=== PATIENT | female | born 1990 | race Caucasian/White ===

== ENCOUNTER → 2018-01-22 11:36 | Outpatient (CLI) | payer MEDICAID, SELFPAY ==
--- NOTE | 2018-01-22 11:54 | DI.REPORT_ITS ---
SYMPTOM/DIAGNOSIS: LOW BACK PAIN, M54.5, H/O FALL LUMBOSACRAL SPINE: Five views were obtained. Hip joints and SI joints are unremarkable in appearance. Intervertebral disc spaces are well maintained. No evidence of spondylolysis or spondylolisthesis. No bony abnormality is seen. CONCLUSION: Negative examination of the lumbar spine.
== END ==
PROVIDERS: PCP Nurse Practitioner Family; Visit Provider Nurse Practitioner Family
DX: M54.5 Low back pain (principal); Z91.81 History of falling
CPT/HCPCS: 72110

== ENCOUNTER → 2018-01-26 01:25 | Outpatient (CLI) | payer MEDICAID, SELFPAY ==
--- NOTE | 2018-01-26 08:08 | DI.REPORT_ITS ---
SYMPTOM/DIAGNOSIS: ? HYDRONEPHROSIS, LT URETERAL STONE, S/P URETEROSCOPY AND STONE REMOVAL, N20.1 RENAL ULTRASOUND: Routine examination. Comparison CT scan is 10/29/17. Comparison ultrasound is . The right kidney measures 11.6 cm. long. No renal mass, calculus or obstruction is seen. There is normal blood flow to the right kidney. The left kidney measures 10.8 cm. long. No renal mass, calculus or obstruction is identified. There is normal blood flow to the left kidney. The prevoid urinary bladder volume was 14 cc's. No intraluminal masses are present. IMPRESSION: Negative renal ultrasound. No evidence of hydronephrosis.
== END ==
PROVIDERS: PCP Nurse Practitioner Family; Visit Provider Urology
DX: N20.1 Calculus of ureter (principal)
CPT/HCPCS: 76770

== ENCOUNTER 2018-12-22 13:21 | Observation (INO) | payer SELFPAY ==
[2018-12-22] VITALS (7 sets, daily range): BP systolic 95–130; BP diastolic 62–90; PULSE 45–87; RESP 15–18; TEMP 35.8–36.8; O2SAT 93–100
--- NOTE | 2018-12-22 13:54 | ED.GENADUL_ITS ---
Discharge Plan Disposition Patient Disposition: [facility] INPATIENT Condition: Stable Discharge Details Chief Complaint: Abd Prob Clinical Impression: Abdominal pain, Vomiting Admit Date/Time: 12/22/18 16:52 Admit Provider: Denis Heller Attending Provider: Denis Heller Primary Care Provider: Mayela Crowder ED Provider: Rodriguez London Discharge Data Discharge Date/Time-TO BE ENTERED AT DEPARTURE: 12/22/18 17:58 Medical Decision Making <Jeffery Alfaro DO - Last Filed: 12/24/18 08:06> This is a 27-year-old female with no significant past medical history except for kidney stones, and egg donation earlier in October, who presents for 1 month of right-sided abdominal pain, in conjunction with vomiting, and some diarrhea. Exam demonstrates a notably tender abdomen, particularly in the right lower quadrants. Pain almost seems out of proportion. The reason why the patient held off for so long was because of the lack of insurance. She denies any urinary complaints or vaginal discharge. Signs and symptoms are concerning for previous ruptured appendectomy with subsequent abscess, atypical kidney stone presentation, less likely pelvic pathology. We will treat pain with Dilaudid, rehydrate, and get a CT scan of the abdomen pelvis and reassess. 2:40 PM Patient was reassessed, she is still notably dry heaving, vomiting and has severe pain. We will give a second milligram of Dilaudid and repeat Zofran. 3:46 PM Radiology report has returned from Dr. Comer, at this time he feels that there is no acute process in the abdomen to explain the patient's symptoms. She does have mild swelling of the distal ileum, but no other acute process. Laboratory work-up is notably unremarkable, no white count, normal urinalysis, no evidence of UTI, bilirubin pathology, renal dysfunction, or liver abnormality. He did go and reassess the patient again and she has still notable voluntary guarding and tenderness. She is still dry heaving. We will give more Zofran and do a p.o. trial. I am uncertain as to the exact etiology of her symptoms. We will add a porphyria screen as a send out. We did do a p.o. trial and she failed and continued to vomit. I have requested further evaluation by the surgeon, Dr. Heller. We are currently awaiting her evaluation of the patient. The case was signed out to my colleague Rodriguez London for final disposition. Please refer to his documentation for final disposition. <Rodriguez London NP - Last Filed: 12/22/18 18:29> Patient signed out to me by Dr. Alfaro pending surgeon assessment. Dr. Heller came and saw and evaluated patient and due to persistent vomiting, not tolerating p.o. intake, and continued pain patient to be admitted to surgical services. Patient remained stable throughout emergency department stay with no new or worsening symptoms that were vocalized by patient. HPI <Jeffery Alfaro DO - Last Filed: 12/24/18 08:06> General Date/Time Provider Initiated Documentation: 12/22/18 13:21 . HPI Narrative: This is a 27-year-old female with no significant past medical history except for previous kidney stones, who presents today for evaluation of right- sided abdominal pain. Patient states that 3-1/2 to 4 weeks ago she developed mild to moderate right sided abdominal pain. It started in her umbilical region and then radiated to the right. She describes it as sharp and achy, the pain is continued not improved over the last month, however over the last few days she has developed vomiting and diarrhea. She has not been able to eat anything for the last 3 days, she is vomiting consistently on a daily basis. She denies any hematochezia, hematemesis, melena, or acholic stool. She denies any pelvic pain, vaginal discharge, dysuria or hematuria or increase in urinary frequency. She denies any previous abdominal surgeries. She denies any other components. Pain is made worse with walking, eating, movement or palpation of the abdomen. She denies fever or chills. She denies any other complaints at this time. Also of note she did mention that she donated some eggs for a friend in October prior to the onset of the symptoms. Related Data Home Medications Medication Instructions Recorded Confirmed Unknown [No Known Home Meds] 12/22/18 12/22/18 Allergies Allergy/AdvReac Type Severity Reaction Status Date / Time mushroom Allergy Severe Anaphylaxsi Unverified 12/22/18 15:17 s FIGS Allergy Unknown Swelling/Ed Uncoded 12/22/18 15:17 rigo General Stated Complaint: Abd Prob JERRY: 3 Review of Systems <Jeffery Alfaro DO - Last Filed: 12/24/18 08:06> Review of Systems All systems reviewed & are unremarkable except as noted in HPI and below PFSH <Jeffery Alfaro DO - Last Filed: 12/24/18 08:06> Medical History Nephrolithiasis Surgical History Cystoscopy (09/13/15) Diagnostic Laproscopy (~2008) Family History Grandmother No problems noted. Mother Essential hypertension Father Mental disorder Brother No problems noted. Brother No problems noted. Other Diabetes Social History Smoking/Tobacco Use Status: Never Drug use: Never Do you feel safe in your relationship?: Yes History History Para 2 Hx # Term Pregnancies Multiple births Hx # Pregnancies Ectopic pregnancies AB induced Hx Number of Living Children AB spontaneous Exam <Jeffery Alfaro DO - Last Filed: 12/24/18 08:06> Narrative Exam Narrative: 1.Const: Well-nourished, Well-developed, appearing stated age 2.Eyes: PERRL, no conjunctival injection, and symmetrical lids. 3.ENT: Atraumatic external nose and ears. Moist MM. Neck: Symmetric, trachea midline, No thyromegaly. 4.CVS: +S1/S2, No murmurs or gallops. Peripheral pulses 2+ and equal in all extremities. Brisk capillary refill in all extremities. 5.RESP: Unlabored respiratory effort. Clear to auscultation bilaterally. No wheezes rales or rhonchi 6.GI: Soft, notably tender in the right lower quadrant and right mid abdomen. Pain is out of proportion. Voluntary guarding. Bilateral mild CVA tenderness. No suprapubic pain or tenderness peer 7.MSK: Normocephalic/Atraumatic, Extremities w/o deformity or ttp No cyanosis or clubbing, Normal movement of all extremities 8.Skin: Warm, Dry. No rashes or lesions. 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 Sensation grossly intact, no focal neurologic deficits. 10.Psych: (AAO) x3. Appropriate mood and affect Course <Jeffery Alfaro DO - Last Filed: 12/24/18 08:06> Vital Signs Temperature 36.7 C 12/22/18 13:28 Pulse 78 12/22/18 13:28 Respiratory Rate 16 12/22/18 13:28 Blood Pressure 130/70 12/22/18 13:28 Pulse Oximetry 93 L 12/22/18 13:28 Temperature 36.7 C 12/22/18 13:28 Temperature Source Temporal Artery Scan 12/22/18 13:28 Pulse 78 12/22/18 13:28 Respiratory Rate 16 12/22/18 13:28 Respiratory Effort 12/22/18 13:31 Blood Pressure 130/70 12/22/18 13:28 Pulse Oximetry 93 L 12/22/18 13:28 Oxygen Delivery Method Room Air 12/22/18 13:28 Oxygen Flow Rate 0 12/22/18 13:28 Pain Level 7 12/22/18 13:28 Lab/Test Results Lab/Test Results: 12/22/18 13:35 Blood Blood Culture - Pending 12/22/18 13:35 Blood Blood Culture - Pending Sign Out <Jeffery Alfaro DO - Last Filed: 12/24/18 08:06> Sign Out Data: Sign Out Comment: Pending surgery evaluation. If persistent vomiting would recommend overnight observation for rehydration and control of persistent v omiting. Last updated by Jeffery Alfaro DO at 12/22/18 15:56
[2018-12-22 14:04] LABS: Absolute Basophil Count 0.01 k/cumm (0.0-0.2); Absolute Eosinophil Count 0.03 k/cumm (0.0-0.7); Absolute Lymphocyte Count 1.57 k/cumm (1.2-3.4); Absolute Monocyte Count 0.29 k/cumm (0.11-0.7); Absolute Neutrophil Count 3.03 k/cumm (1.2-6.7); Basophils % 0.2; Eosinophils % 0.6; HCT 40.3 % (36.0-46.0); HGB 13.7 g/dL (12.0-15.5); Lymphocytes % 31.8; Mean Corpuscular Hemoglobin 29.7 pg (27.0-33.0); Mean Corpuscular Volume 87.2 fL (80-95); Mean Platelet Volume 8.9 fL (8.0-11.0); Monocytes % 5.9; Neutrophils % 61.5; Platelet Count 356 x1000/uL (130-400); RBC 4.62 m/cumm (4.00-5.20); RBC Distribution Width 12.7 % (11.7-14.6); White Blood Cell Count 4.93 k/cumm (4.4-10.8)
[2018-12-22 14:05] LABS: Lactate-non-spesis 1.4 mmol/l (0.6-1.4)
[2018-12-22] MEDS: HYDROmorphone 2 MG/ML VIAL 1 MG IVP ×2 (14:05→14:59)
[2018-12-22] MEDS: Normal Saline 1,000 ML 1000 ML IV ×2 (14:05→15:30)
[2018-12-22] MEDS: Ondansetron 4 MG/2 ML VIAL ×2 (14:06→14:57)
[2018-12-22 14:20] LABS: Lipase 82 U/L (73-393)
[2018-12-22 14:26] LABS: ALT 16 U/L (12-78); AST 13 U/L (15-37); Albumin 3.7 g/dL (3.4-5.0); Alkaline Phosphatase 88 U/L (46-116); Anion Gap 13.6 mmol/L (3-11); BUN 13 mg/dL (7-18); Bilirubin, Total 0.3 mg/dL (0.2-1.0); CO2 22.4 mmol/L (21.0-32.0); CREATININE 0.72 mg/dL (0.55-1.02); Chloride 104 mmol/L (98-107); Glucose 83 mg/dL (70-100); Potassium 3.4 mmol/L (3.5-5.1); Sodium 140 mmol/L (136-145); Total Protein 7.7 g/dL (6.4-8.2)
[2018-12-22 14:34] LABS: HCG Quant, Pregnancy < 1 mIU/mL (1-3)
[2018-12-22 15:04] LABS: Bilirubin Negative (Negative); Blood Trace-lysed (Negative); Clarity Clear (Clear); Glucose Negative (Negative); Ketones Trace mg/dL (Negative); Leukocyte Esterase Trace (Negative); Nitrite Negative (Negative); Urobilinogen 0.2 EU/dL (Up TO 0.2)
--- NOTE | 2018-12-22 15:10 | DI.CT_ITS ---
SYMPTOM/DIAGNOSIS: 1 MONTH RLQ PAIN, SEVERE, REBOUND CT ABDOMEN AND PELVIS: Comparison is made with 29 Oct 2017. Images were performed from the lung bases through the ischial tuberosities after IV and without oral contrast. The lung bases are clear. The liver, gallbladder, spleen, pancreas, kidneys and adrenals appear normal. There is no bowel dilatation or inflammatory change. The appendix appears normal. The bladder and uterus are unremarkable. There are multiple tiny bilateral ovarian follicles. There is a trace, physiological amount of fluid in the pelvis. IMPRESSION: No evidence of appendicitis or other acute abnormality.
[2018-12-22] MEDS: Omnipaque 350 MG/ML 100 ML BTL IJ (15:11)
[2018-12-22 15:17] LABS: Bacteria Rare HPF (Negative); C & S Indicated? Yes; Casts Negative LPF (Negative); Crystals Negative HPF (Negative); Epithelial Cells Few HPF (Negative); Mucus Negative (Negative); RBC Negative (0-2)
[2018-12-22] MEDS: Metoclopramide 10 MG/2 ML VIAL IVP (16:02)
[2018-12-22] MEDS: Dicyclomine 20 MG TAB PO (16:22)
--- NOTE | 2018-12-22 17:16 | HPE_ITS ---
Date of service: 12/22/18 Time of Service: 17:16 Assessment and Plan (1) Abdominal pain: Current visit: No Status: Acute 27 y/o female with 1 month h/o back and abdominal pain that has now settled in the RLQ. Right CVA tenderness also noted. Nonspecific mild swelliing of the distal ileum reported on CT. No acute findings to explain pain and associated symptoms. Presentation not consistent with acute appendicitis. Admit for obs and IVF. Patient appears dehydrated and reportedly not tolerating po. Repeat labs in am. Urology consult. Further recommendations pending course. All questions answered. Patient agreeable with plans. (2) Ureterolithiasis: Current visit: No Status: Acute Patient with a history of kidney stones requiring multiple lithotripsy procedures. Per chart, she has had some atypical presentations with RLQ pain in the past. Will consult urology for eval given history and RLQ pain without other clear etiology at this time. As above. History of Present Illness Chief Complaint: RLQ pain Narrative: 27 y/o female who presents to the ED with abdominal pain, nausea and vomiting. She has a known h/o kidney stones and reportedly has had 11 lithotripsies in the past. She notes that this started as a dull ache in her lower back about a month ago, but then changed to a deep burning mid-abdominal pain, and pressure pain across the RLQ. Pain became more intense over the past several days and she could not take it any more so she came to the ED. She notes subjective fevers and chills but did not check her temp. (+) nausea and vomiting, unable to keep down even water today. She was noted to be dry on presentation to the ED, requiring 2 L IVF before she was able to produce a urine specimen. She notes diarrhea which she describes as soft, formed stool with the urge to defecate whenever she tries to eat. She denies melena, hematochezia, dysuria, or hematuria. She does not think that this RLQ pain is similar to her previous episodes with kidney stones. However, she did have an episode of RLQ pain in 2015 for which she was evaluated by geneal surgery (Dr. Gonzalez). Her pain at that time was felt to be an atypical presentation of kidney stones. She has a h/o laparoscopy to remove a right ovarian cyst. She had her eggs harvested about a month ago. She denies any personal or H IBS or IBD. There is a remote [facility] colon cancer in her paternal grandparents. CT abd/pelvis in the ED today noted mild swelling of the distal i leum, but no other acute process per discussion with the ED physician, Dr. Alfaro. Labs reviewed. WBC WNL. U/A (-) except for a trace of leukocyte esterase, ketones, and blood. Review of Systems Review of Systems All systems reviewed & are unremarkable except as noted in HPI and below Constitutional Reports chills and Reports fever(s) Cardiovascular Denies chest pain, Denies rapid heart rate and Reports dyspnea (associated with pain) Respiratory Denies cough and Reports dyspnea (associated with pain) Gastrointestinal Reports abdominal pain, Denies melena, Denies hematochezia, Denies constipation, Reports nausea and Reports vomiting Genitourinary Denies hematuria and Denies dysuria PFSH Medical History Nephrolithiasis Surgical History Cystoscopy (09/13/15) Diagnostic Laproscopy (~2008) Family History Grandmother No problems noted. Mother Essential hypertension Father Mental disorder Brother No problems noted. Brother No problems noted. Other Diabetes Social History Smoking/Tobacco Use Status: Never Drug use: Never Do you feel safe in your relationship?: Yes History History Para 2 Hx # Term Pregnancies Multiple births Hx # Pregnancies Ectopic pregnancies AB induced Hx Number of Living Children AB spontaneous Meds Allergies Allergy/AdvReac Type Severity Reaction Status Date / Time mushroom Allergy Severe Anaphylaxsi Unverified 12/22/18 15:17 s FIGS Allergy Unknown Swelling/Ed Uncoded 12/22/18 15:17 rigo Exam Const General: cooperative, uncomfortable (appears mildly uncomfortable secondary to pain) and well developed Nutritional Appearance: well nourished Orientation: alert and oriented x3 HENMT Head: normocephalic and atraumatic Resp Effort & Inspection: normal respiratory effort and able to speak in complete sentences Cardio Jugular venous pressure: no JVD Rate: regular rate Rhythm: regular rhythm GI Inspection: non-distended Palpation: soft, not firm, no guarding, no masses, not rigid and tender (moderately tender RLQ with mild discomfort to palpation left abdomen) Back/Spine/Pelvis Back: CVA tenderness (right) Skin General skin exam: no rashes or lesions noted and no jaundice Neuro General: alert and oriented x3 Speech: speech normal Results Imaging Abdomen CT scan report/results: image reviewed CT scan - pelvis: image reviewed Labs : 12/22/18 13:55 12/22/18 13:55 Laboratory Results - last 24 hr 12/22/18 12/22/18 12/22/18 13:55 13:55 13:55 WBC 4.93 RBC 4.62 Hgb 13.7 Hct 40.3 MCV 87.2 MCH 29.7 MCHC 34.0 RDW 12.7 Plt Count 356 MPV 8.9 Immature Gran % 0.0 Neutrophils % 61.5 Lymphocytes % 31.8 Monocytes % 5.9 Eosinophils % 0.6 Basophils % 0.2 Absolute Neutrophils 3.03 Absolute Lymphocytes 1.57 Absolute Monocytes 0.29 Absolute Eosinophils 0.03 Absolute Basophils 0.01 Sodium 140 Potassium 3.4 L Chloride 104 Carbon Dioxide 22.4 Anion Gap 13.6 H BUN 13 Creatinine 0.72 Estimated GFR/1.73 m2 >= 60.00 Glucose 83 Lactate 1.4 Calcium 9.0 Total Bilirubin 0.3 AST 13 L ALT 16 Alkaline Phosphatase 88 Total Protein 7.7 Albumin 3.7 Lipase Beta HCG, Quant Urine Color Urine Clarity Urine pH Ur Specific [place] Urine Protein Urine Ketones Urine Blood Urine Nitrite Urine Bilirubin Urine Urobilinogen Ur Leukocyte Esterase Urine RBC Urine WBC Ur Epithelial Cells Urine Crystals Urine Bacteria Urine Casts Urine Mucus Ur Culture Indicated? Urine Glucose POC Lead 12/22/18 12/22/18 12/22/18 13:55 13:55 14:45 WBC RBC Hgb Hct MCV MCH MCHC RDW Plt Count MPV Immature Gran % Neutrophils % Lymphocytes % Monocytes % Eosinophils % Basophils % Absolute Neutrophils Absolute Lymphocytes Absolute Monocytes Absolute Eosinophils Absolute Basophils Sodium Potassium Chloride Carbon Dioxide Anion Gap BUN Creatinine Estimated GFR/1.73 m2 Glucose Lactate Calcium Total Bilirubin AST ALT Alkaline Phosphatase Total Protein Albumin Lipase 82 Beta HCG, Quant < 1 L Urine Color Yellow Urine Clarity Clear Urine pH 7.0 Ur Specific [place] 1.010 Urine Protein Negative Urine Ketones Trace H Urine Blood Trace-lysed H Urine Nitrite Negative Urine Bilirubin Negative Urine Urobilinogen 0.2 Ur Leukocyte Esterase Trace H Urine RBC Negative Urine WBC 3-5 Ur Epithelial Cells Few Urine Crystals Negative Urine Bacteria Rare Urine Casts Negative Urine Mucus Negative Ur Culture Indicated? Yes Urine Glucose Negative POC Lead 12/22/18 15:41 WBC RBC Hgb Hct MCV MCH MCHC RDW Plt Count MPV Immature Gran % Neutrophils % Lymphocytes % Monocytes % Eosinophils % Basophils % Absolute Neutrophils Absolute Lymphocytes Absolute Monocytes Absolute Eosinophils Absolute Basophils Sodium Potassium Chloride Carbon Dioxide Anion Gap BUN Creatinine Estimated GFR/1.73 m2 Glucose Lactate Calcium Total Bilirubin AST ALT Alkaline Phosphatase Total Protein Albumin Lipase Beta HCG, Quant Urine Color Urine Clarity Urine pH Ur Specific [place] Urine Protein Urine Ketones Urine Blood Urine Nitrite Urine Bilirubin Urine Urobilinogen Ur Leukocyte Esterase Urine RBC Urine WBC Ur Epithelial Cells Urine Crystals Urine Bacteria Urine Casts Urine Mucus Ur Culture Indicated? Urine Glucose POC Lead Cancelled Last Vital Signs Temp 36.6 C 12/22/18 16:20 Pulse 51 L 12/22/18 16:20 Resp 16 12/22/18 16:20 BP 104/66 12/22/18 16:20 Pulse Ox 93 L 12/22/18 16:20
[2018-12-22] MEDS: Lactated Ringers 1,000 ML 125 ML IV (18:12)
[2018-12-22] MEDS: Ketorolac 30 MG/ML VIAL IVP (20:23)
[2018-12-22] MEDS: Normal Saline Flush 10 ML SYR IVP ×2 (20:24→23:19)
[2018-12-22] MEDS: HYDROmorphone 2 MG/ML VIAL 0.5 MG IVP (23:18)
[2018-12-22] MEDS: Ondansetron 4 MG/2 ML VIAL IVP (23:18)
[2018-12-23] MEDS: Lactated Ringers 1,000 ML 125 ML IV ×3 (01:45→18:41)
[2018-12-23 03:35] VITALS: BP 95/58; PULSE 61; RESP 16; TEMP 36.9; O2SAT 99
[2018-12-23] MEDS: Normal Saline Flush 10 ML SYR IVP ×2 (05:56→13:06)
[2018-12-23] MEDS: Ketorolac 30 MG/ML VIAL IVP (05:56)
[2018-12-23 07:21] LABS: Absolute Basophil Count 0.01 k/cumm (0.0-0.2); Absolute Eosinophil Count 0.04 k/cumm (0.0-0.7); Absolute Lymphocyte Count 2.19 k/cumm (1.2-3.4); Absolute Monocyte Count 0.32 k/cumm (0.11-0.7); Absolute Neutrophil Count 1.25 k/cumm (1.2-6.7); Basophils % 0.3; HCT 35.5 % (36.0-46.0); HGB 11.3 g/dL (12.0-15.5); Lymphocytes % 57.5; Mean Corp. HGB Concentration 31.8 g/dL (32.0-36.0); Mean Corpuscular Hemoglobin 28.6 pg (27.0-33.0); Mean Corpuscular Volume 89.9 fL (80-95); Mean Platelet Volume 9.4 fL (8.0-11.0); Monocytes % 8.4; Neutrophils % 32.8; Platelet Count 295 x1000/uL (130-400); RBC 3.95 m/cumm (4.00-5.20); RBC Distribution Width 12.8 % (11.7-14.6); White Blood Cell Count 3.81 k/cumm (4.4-10.8)
[2018-12-23 07:30] VITALS: BP 97/63; PULSE 59; RESP 18; TEMP 35.9; O2SAT 99
[2018-12-23 07:32] LABS: Anion Gap 5.2 mmol/L (3-11); BUN 13 mg/dL (7-18); CO2 28.8 mmol/L (21.0-32.0); CREATININE 0.66 mg/dL (0.55-1.02); Chloride 109 mmol/L (98-107); Glucose 81 mg/dL (70-100); Potassium 3.6 mmol/L (3.5-5.1); Sodium 143 mmol/L (136-145)
[2018-12-23 08:39] LABS: Diff Comment Diff Reviewed
[2018-12-23 08:40] LABS: RBC Morphology Normal
--- NOTE | 2018-12-23 09:38 | INITIAL_ITS ---
Care Management Initial Assess REASON FOR HOSPITALIZATION:: Right lower quadrant abdominal pain, nausea, vomiting PAST MEDICAL HISTORY/PAST SURGICAL HISTORY:: Asthma, Hematuria, Bilateral nephrolithiasis, (R) ovarian cyst removal, nephrolithiasis, cystoscopy, diagnostic laproscopy PREVIOUS FUNCTIONAL STATUS/SOCIAL/FAMILY SUPPORTS:: Hiral resides with her significant other Kenneth and two children in [place], [place]. She is independent at baseline in the community. CURRENT FUNCTIONAL STATUS:: Samantha is lying in bed, pleasant and open to conversation. ADVANCE DIRECTIVES:: None on file Has patient been provided with information about the portal?: Yes Did the patient sign up for the portal?: No CODE STATUS:: Full Code INSURANCE COVERAGE / FINANCIAL ISSUES:: Medicaid CURRENT HOME/COMMUNITY SERVICES/EQUIPMENT:: No current services or equipment. PRIMARY CARE PHYSICIAN:: Mayela Crowder POTENTIAL DISCHARGE NEEDS:: Follow up appointment with PCP. PATIENT/FAMILY EDUCATION NEEDS:: Review discharge instructions, discuss Ask Me Three. ANTICIPATED BARRIERS TO DISCHARGE:: None identified. TRANSPORTATION:: Via private vehicle with family. PLAN:: Hiral will return home when ready per MD. She will follow up with her PCP and plan of care as prescribed. She will transport via private vehicle with familiy.
[2018-12-23 11:30] VITALS: BP 97/65; PULSE 61; RESP 16; TEMP 37.2; O2SAT 98
--- NOTE | 2018-12-23 11:33 | PGE_ITS ---
Date of Service Date of service: 12/23/18 Time of Service: 11:33 Assessment and Plan (1) Abdominal pain: Current visit: No Status: Acute 27 y/o female with 1 month h/o back and abdominal pain that has now settled in the RLQ. Right CVA tenderness also noted. Nonspecific mild swelliing of the distal ileum reported on CT. No acute findings to explain pain and associated symptoms. Presentation not consistent with acute appendicitis. Admitted for obs and IVF. Patient appears dehydrated and reportedly not tolerating po. Repeat labs noted. Await urology consult. Further dionisio mmendations pending course. All questions answered. Patient agreeable with plans. (2) Ureterolithiasis: Current visit: No Status: Acute Patient with a history of kidney stones requiring multiple lithotripsy procedures. Per chart, she has had some atypical presentations with RLQ pain in the past. Will consult urology for eval given history and RLQ pain without other clear etiology at this time. As above. Subjective Interval history since last seen: Patient seen with and family at bedside. Notes still having emesis with po liquids and pain in RLQ. No fever overnight. Labs reviewed. Exam Const General: cooperative, comfortable, no acute distress and well developed Nutritional Appearance: well nourished Orientation: alert and oriented x3 HENOK Head: normocephalic and atraumatic Resp Effort & Inspection: normal respiratory effort and able to speak in complete sentences Cardio Jugular venous pressure: no JVD Rate: regular rate Rhythm: regular rhythm GI Inspection: non-distended Palpation: soft, not firm, no guarding, not rigid and tender (tenderness impoved from exam 12/22/18) in the RLQ Back/Spine/Pelvis Back: CVA tenderness (right, CVA tenderness > RLQ on palpation) Skin General skin exam: no rashes or lesions noted and no jaundice Neuro General: alert and oriented x3 Speech: speech normal Objective Objective Clinical Data: Abnormal lab results 12/22/18 12/22/18 12/22/18 Range/Units 13:55 13:55 14:45 WBC (4.4-10.8) k/cumm RBC (4.00-5.20) m/cumm Hgb (12.0-15.5) g/dL Hct (36.0-46.0) % MCHC (32.0-36.0) g/dL Potassium 3.4 L (3.5-5.1) mmol/L Chloride (98-107) mmol/L Anion Gap 13.6 H (3-11) mmol/L Calcium (8.5-10.1) mg/dL AST 13 L (15-37) U/L Beta HCG, Quant < 1 L (1-3) mIU/mL Urine Ketones Trace H (Negative) mg/dL Urine Blood Trace-lysed H (Negative) Ur Leukocyte Esterase Trace H (Negative) 12/23/18 12/23/18 Range/Units 06:17 06:17 WBC 3.81 L (4.4-10.8) k/cumm RBC 3.95 L (4.00-5.20) m/cumm Hgb 11.3 L D (12.0-15.5) g/dL Hct 35.5 L (36.0-46.0) % MCHC 31.8 L (32.0-36.0) g/dL Potassium (3.5-5.1) mmol/L Chloride 109 H (98-107) mmol/L Anion Gap (3-11) mmol/L Calcium 8.0 L (8.5-10.1) mg/dL AST (15-37) U/L Beta HCG, Quant (1-3) mIU/mL Urine Ketones (Negative) mg/dL Urine Blood (Negative) Ur Leukocyte Esterase (Negative) Vital Signs Temperature 35.9 C L 12/23/18 07:30 Temperature Source Tympanic 12/23/18 07:30 Pulse 59 L 12/23/18 07:30 Pulse Rhythm Regular 12/23/18 07:30 Respiratory Rate 18 12/23/18 07:30 Respiratory Effort 12/23/18 07:30 Respiratory Depth Normal 12/23/18 07:30 Respiratory Pattern Normal 12/23/18 07:30 Blood Pressure 97/63 L 12/23/18 07:30 Pulse Oximetry 99 12/23/18 07:30 Oxygen Delivery Method Room Air 12/23/18 07:30 Oxygen Flow Rate 0 12/23/18 07:30 Pain Level 4 12/23/18 07:30 Comment 12/23/18 03:35 Intake & Output 12/22/18 12/22/18 12/23/18 11:59 23:59 11:59 Intake Total 1050.5 / 1050.5 Output Total 100 / 100 Balance 950.5 / 950.5 Weight 71.1 kg Intake: IV 1050.5 / 1050.5 Output: Emesis 100 / 100 Other: Urine Appearance Clear Emesis Description Clear/Water # Voids 600 Laboratory Results WBC 3.81 k/cumm (4.4-10.8) L 12/23/18 06:17 RBC 3.95 m/cumm (4.00-5.20) L 12/23/18 06:17 Hgb 11.3 g/dL (12.0-15.5) L D 12/23/18 06:17 Hct 35.5 % (36.0-46.0) L 12/23/18 06:17 MCV 89.9 fL (80-95) 12/23/18 06:17 MCH 28.6 pg (27.0-33.0) 12/23/18 06:17 MCHC 31.8 g/dL (32.0-36.0) L 12/23/18 06:17 RDW 12.8 % (11.7-14.6) 12/23/18 06:17 Plt Count 295 x1000/uL (130-400) 12/23/18 06:17 MPV 9.4 fL (8.0-11.0) 12/23/18 06:17 Immature Gran % 0.0 12/23/18 06:17 32.8 12/23/18 06:17 57.5 12/23/18 06:17 8.4 12/23/18 06:17 1.0 12/23/18 06:17 0.3 12/23/18 06:17 Absolute Neutrophils 1.25 k/cumm (1.2-6.7) 12/23/18 06:17 Absolute Lymphocytes 2.19 k/cumm (1.2-3.4) 12/23/18 06:17 Absolute Monocytes 0.32 k/cumm (0.11-0.7) 12/23/18 06:17 Absolute Eosinophils 0.04 k/cumm (0.0-0.7) 12/23/18 06:17 Absolute Basophils 0.01 k/cumm (0.0-0.2) 12/23/18 06:17 Diff reviewed 12/23/18 06:17 RBC Morphology Normal 12/23/18 06:17 Sodium 143 mmol/L (136-145) 12/23/18 06:17 Potassium 3.6 mmol/L (3.5-5.1) 12/23/18 06:17 Chloride 109 mmol/L (98-107) H 12/23/18 06:17 Carbon Dioxide 28.8 mmol/L (21.0-32.0) 12/23/18 06:17 5.2 mmol/L (3-11) 12/23/18 06:17 BUN 13 mg/dL (7-18) 12/23/18 06:17 0.66 mg/dL (0.55-1.02) 12/23/18 06:17 >= 60.00 (mL/min/1.73m2) 12/23/18 06:17 Glucose 81 mg/dL (70-100) 12/23/18 06:17 1.4 mmol/l (0.6-1.4) 12/22/18 13:55 Calcium 8.0 mg/dL (8.5-10.1) L 12/23/18 06:17 0.3 mg/dL (0.2-1.0) 12/22/18 13:55 AST 13 U/L (15-37) L 12/22/18 13:55 ALT 16 U/L (12-78) 12/22/18 13:55 88 U/L (46-116) 12/22/18 13:55 7.7 g/dL (6.4-8.2) 12/22/18 13:55 3.7 g/dL (3.4-5.0) 12/22/18 13:55 82 U/L (73-393) 12/22/18 13:55 Beta HCG, Quant < 1 mIU/mL (1-3) L 12/22/18 13:55 Yellow (Yellow) 12/22/18 14:45 Clear (Clear) 12/22/18 14:45 7.0 (5-8) 12/22/18 14:45 Ur Specific [place] 1.010 (1.005-1.025) 12/22/18 14:45 Negative mg/dL (Negative) 12/22/18 14:45 Trace mg/dL (Negative) H 12/22/18 14:45 Trace-lysed (Negative) H 12/22/18 14:45 Negative (Negative) 12/22/18 14:45 Negative (Negative) 12/22/18 14:45 0.2 EU/dL (Up TO 0.2) 12/22/18 14:45 Ur Leukocyte Esterase Trace (Negative) H 12/22/18 14:45 Negative (0-2) 12/22/18 14:45 3-5 HPF (0-5) 12/22/18 14:45 Ur Epithelial Cells Few HPF (Negative) 12/22/18 14:45 Negative HPF (Negative) 12/22/18 14:45 Rare HPF (Negative) 12/22/18 14:45 Negative LPF (Negative) 12/22/18 14:45 Negative (Negative) 12/22/18 14:45 Ur Culture Indicated? Yes 12/22/18 14:45 Negative mg/dL (Negative) 12/22/18 14:45 Cancelled 12/22/18 15:41
--- NOTE | 2018-12-23 11:40 | PHARADMIT ---
Admission Pharmacy Clinical Review RIGHT LOWER QUADRANT ABDOMINAL PAIN, NAUSEA, VOMITING Code Status Full Code Current Weight Wgt-71.1 kg Renally Cleared and Narrow Therapeutic Index Meds CrCl~ 79.7 mL/min Meds-OK QTc Value / Action Taken NA BP Control, Fever BP- 97/63 Tmax- 36.3C Electrolytes reviewed Na- 143 K+3.6 DVT Prophylaxis NONE Opiate Usage / Scheduled Bowel Regimen Ordered Yesnone No (NPO) Plt/SCr for Heparin / Enoxaparin Plts-295 SCr-0.66 INR for Warfarin na H/H stable, WBC/Bands H&H- 11.3/35.5 WBC- 3.81 Antibiotic appropriateness none Cultures and Sensitivities Blood Urine- pending Surgical ABX d/c within 24 hr na DM control / Insulin Dosing BG-81 Heart Failure (Check EF%) (ROSAS's, B-Block, Diuretics) none IV to PO Switch no Home Meds Reviewed Yes Home Meds Not Ordered No known meds Comments
--- NOTE | 2018-12-23 12:23 | W.UROLOGYCON ---
Date of service: 12/23/18 Time of Service: 12:29 Assessment and Plan (1) Abdominal pain: Current visit: No Status: Acute While she does have a history of bilateral ureteral stones, there is nothing based on her symptoms, urinalysis or most importantly based on her imaging studies to suggest that she has a stone at this time. History of Present Illness Chief Complaint: History of kidney stones Narrative: This is a 27-year-old woman who has a history of bilateral kidney stones. Many of her episodes of renal colic occurred before she moved to our area. Since moving locally, she has required ureteroscopic stone manipulation on 2 different occasions. The stone we extracted from the right ureter in 2016 was 60% calcium oxalate dihydrate and 40% calcium oxalate monohydrate. The stone we extracted from the left ureter in 2018 was 70% calcium phosphate, 20% calcium oxalate monohydrate and 10% calcium oxalate dihydrate. She tells me that she noticed some right back pain about a month ago. At first, she was concerned that the pain was related to a kidney stone so she increased her fluid intake. Her pain gradually worsened and became associated with nausea and vomiting. She noticed that the pain, nausea and vomiting all seem to be worse immediately after she ate, but she also noticed that at times the pain would wake her in the middle the night. She tells me the pain is just to the right of the periumbilical area. She has not been seeing any blood in the urine. She has no frequency or urgency. Review of Systems Review of Systems She describes feeling feverish She has no vision change or headaches She has no diabetes or thyroid dysfunction She has no cough or sputum production She has no chest pain or palpitations She describes nausea and vomiting within minutes of eating. She has no seizures or strokes [facility]LY [facility] Medical History Nephrolithiasis Surgical History Cystoscopy (09/13/15) Diagnostic Laproscopy (~2008) Family History Grandmother No problems noted. Mother Essential hypertension Father Mental disorder Brother No problems noted. Brother No problems noted. Other Diabetes Social History Smoking/Tobacco Use Status: Never Drug use: Never Do you feel safe in your relationship?: Yes History History Para 2 Hx # Term Pregnancies Multiple births Hx # Pregnancies Ectopic pregnancies AB induced Hx Number of Living Children AB spontaneous Exam Narrative Exam Narrative: She does not appear septic or toxic Her vital signs are documented elsewhere She has no peritoneal signs on abdominal exam She is awake and alert Her urinalysis from the emergency room showed blood on dipstick, but microscopically (which is much more accurate) no red blood cells are seen I reviewed her CT scan on the PACS system and with the in-house radiologist. No renal or ureteral stones are seen. No hydronephrosis is seen. Results Last Vital Signs Temp 37.2 C 12/23/18 11:30 Pulse 61 12/23/18 11:30 Resp 16 12/23/18 11:30 BP 97/65 L 12/23/18 11:30 Pulse Ox 98 12/23/18 11:30 Labs : 12/23/18 06:17 12/23/18 06:17 Laboratory Results - last 24 hr 12/22/18 12/22/18 12/22/18 13:55 13:55 13:55 WBC 4.93 RBC 4.62 Hgb 13.7 Hct 40.3 MCV 87.2 MCH 29.7 MCHC 34.0 RDW 12.7 Plt Count 356 MPV 8.9 Immature Gran % 0.0 Neutrophils % 61.5 Lymphocytes % 31.8 Monocytes % 5.9 Eosinophils % 0.6 Basophils % 0.2 Absolute Neutrophils 3.03 Absolute Lymphocytes 1.57 Absolute Monocytes 0.29 Absolute Eosinophils 0.03 Absolute Basophils 0.01 Differential Comment RBC Morphology Sodium 140 Potassium 3.4 L Chloride 104 Carbon Dioxide 22.4 Anion Gap 13.6 H BUN 13 Creatinine 0.72 Estimated GFR/1.73 m2 >= 60.00 Glucose 83 Lactate 1.4 Calcium 9.0 Total Bilirubin 0.3 AST 13 L ALT 16 Alkaline Phosphatase 88 Total Protein 7.7 Albumin 3.7 Lipase Beta HCG, Quant Urine Color Urine Clarity Urine pH Ur Specific [place] Urine Protein Urine Ketones Urine Blood Urine Nitrite Urine Bilirubin Urine Urobilinogen Ur Leukocyte Esterase Urine RBC Urine WBC Ur Epithelial Cells Urine Crystals Urine Bacteria Urine Casts Urine Mucus Ur Culture Indicated? Urine Glucose POC Lead 12/22/18 12/22/18 12/22/18 13:55 13:55 14:45 WBC RBC Hgb Hct MCV MCH MCHC RDW Plt Count MPV Immature Gran % Neutrophils % Lymphocytes % Monocytes % Eosinophils % Basophils % Absolute Neutrophils Absolute Lymphocytes Absolute Monocytes Absolute Eosinophils Absolute Basophils Differential Comment RBC Morphology Sodium Potassium Chloride Carbon Dioxide Anion Gap BUN Creatinine Estimated GFR/1.73 m2 Glucose Lactate Calcium Total Bilirubin AST ALT Alkaline Phosphatase Total Protein Albumin Lipase 82 Beta HCG, Quant < 1 L Urine Color Yellow Urine Clarity Clear Urine pH 7.0 Ur Specific [place] 1.010 Urine Protein Negative Urine Ketones Trace H Urine Blood Trace-lysed H Urine Nitrite Negative Urine Bilirubin Negative Urine Urobilinogen 0.2 Ur Leukocyte Esterase Trace H Urine RBC Negative Urine WBC 3-5 Ur Epithelial Cells Few Urine Crystals Negative Urine Bacteria Rare Urine Casts Negative Urine Mucus Negative Ur Culture Indicated? Yes Urine Glucose Negative POC Lead 12/22/18 12/23/18 12/23/18 15:41 06:17 06:17 WBC 3.81 L RBC 3.95 L Hgb 11.3 L D Hct 35.5 L MCV 89.9 MCH 28.6 MCHC 31.8 L RDW 12.8 Plt Count 295 MPV 9.4 Immature Gran % 0.0 Neutrophils % 32.8 Lymphocytes % 57.5 Monocytes % 8.4 Eosinophils % 1.0 Basophils % 0.3 Absolute Neutrophils 1.25 Absolute Lymphocytes 2.19 Absolute Monocytes 0.32 Absolute Eosinophils 0.04 Absolute Basophils 0.01 Differential Comment Diff reviewed RBC Morphology Normal Sodium 143 Potassium 3.6 Chloride 109 H Carbon Dioxide 28.8 Anion Gap 5.2 BUN 13 Creatinine 0.66 Estimated GFR/1.73 m2 >= 60.00 Glucose 81 Lactate Calcium 8.0 L Total Bilirubin AST ALT Alkaline Phosphatase Total Protein Albumin Lipase Beta HCG, Quant Urine Color Urine Clarity Urine pH Ur Specific [place] Urine Protein Urine Ketones Urine Blood Urine Nitrite Urine Bilirubin Urine Urobilinogen Ur Leukocyte Esterase Urine RBC Urine WBC Ur Epithelial Cells Urine Crystals Urine Bacteria Urine Casts Urine Mucus Ur Culture Indicated? Urine Glucose POC Lead Cancelled
[2018-12-23] MEDS: Ondansetron 4 MG/2 ML VIAL IVP (13:05)
[2018-12-23 16:25] VITALS: BP 117/80; PULSE 51; RESP 16; TEMP 36.8; O2SAT 99
--- NOTE | 2018-12-23 18:21 | W.PM.PROGNOT ---
Date of Service Date of service: 12/23/18 Time of Service: 18:21 Assessment and Plan (1) Abdominal pain: Current visit: No Status: Acute 27 y/o female with 1 month h/o back and abdominal pain that has now settled in the RLQ. Right CVA tenderness also noted. Nonspecific mild swelling of the distal ileum reported on CT. No acute findings to explain pain and associated symptoms per initial verbal report. Presentation not consistent with acute appendicitis. Admitted for obs and IVF. Pain and nausea improving but still persistent nausea this afternoon. CT report now available today notes multiple bilateral ovarian follicles. Consider symptoms may be related to ruptured ovarian cyst? As she is improving, continue conservative care. Will adjust anti-nausea meds. May advance diet in am if nausea continues to improve. Hopefully can d/c home tomorrow if tolerating advanced diet. (2) Ureterolithiasis: Current visit: No Status: Acute Patient with a history of kidney stones requiring multiple lithotripsy procedures. Right CVA tenderness. Per chart, she has had some atypical presentations with RLQ pain in the past. Urology consult noted. Subjective Interval history since last seen: Patient notes abdominal pain has subsided. Able to keep down clears without emesis but still persistent nausea. Alternating on Zofran and Phenergan. Notes Phenergan makes her sleepy. Urology consult appreciated. CT abd/pelvis from 12/22/18 - report now on chart. Numerous bilateral ovarian follicles noted with small amount of pelvic fluid. Exam Const General: cooperative, comfortable, no acute distress and well developed Nutritional Appearance: well nourished Orientation: alert and oriented x3 HENMT Head: normocephalic and atraumatic Resp Effort & Inspection: normal respiratory effort and able to speak in complete sentences Skin General skin exam: no rashes or lesions noted and no jaundice Objective Objective Clinical Data: Abnormal lab results 12/23/18 12/23/18 Range/Units 06:17 06:17 WBC 3.81 L (4.4-10.8) k/cumm RBC 3.95 L (4.00-5.20) m/cumm Hgb 11.3 L D (12.0-15.5) g/dL Hct 35.5 L (36.0-46.0) % MCHC 31.8 L (32.0-36.0) g/dL Chloride 109 H (98-107) mmol/L Calcium 8.0 L (8.5-10.1) mg/dL Vital Signs Temperature 36.8 C 12/23/18 16:25 Temperature Source Tympanic 12/23/18 16:25 Pulse 51 L 12/23/18 16:25 Pulse Rhythm Regular 12/23/18 17:36 Respiratory Rate 16 12/23/18 16:25 Respiratory Effort Non-Labored 12/23/18 17:36 Respiratory Depth Normal 12/23/18 17:36 Respiratory Pattern Normal 12/23/18 17:36 Blood Pressure 117/80 12/23/18 16:25 Pulse Oximetry 99 12/23/18 16:25 Oxygen Delivery Method Room Air 12/23/18 16:25 Oxygen Flow Rate 0 12/23/18 16:25 Pain Level 0 12/23/18 16:25 Comment 12/23/18 03:35 Intake & Output 12/22/18 12/23/18 12/23/18 23:59 11:59 23:59 Intake Total 1050.5 / 1050.5 640 / 2634. Output Total 100 / 100 Balance 950.5 / 950.5 640 / 2634. Weight 71.1 kg Intake: IV 1050.5 / 1050.5 Oral 640 / 640 Output: Emesis 100 / 100 Other: Urine Appearance Clear Clear Comment pt is voiding independently Emesis Description Clear/Water # Voids 600 Laboratory Results WBC 3.81 k/cumm (4.4-10.8) L 12/23/18 06:17 RBC 3.95 m/cumm (4.00-5.20) L 12/23/18 06:17 Hgb 11.3 g/dL (12.0-15.5) L D 12/23/18 06:17 Hct 35.5 % (36.0-46.0) L 12/23/18 06:17 MCV 89.9 fL (80-95) 12/23/18 06:17 MCH 28.6 pg (27.0-33.0) 12/23/18 06:17 MCHC 31.8 g/dL (32.0-36.0) L 12/23/18 06:17 RDW 12.8 % (11.7-14.6) 12/23/18 06:17 Plt Count 295 x1000/uL (130-400) 12/23/18 06:17 MPV 9.4 fL (8.0-11.0) 12/23/18 06:17 Immature Gran % 0.0 12/23/18 06:17 32.8 12/23/18 06:17 57.5 12/23/18 06:17 8.4 12/23/18 06:17 1.0 12/23/18 06:17 0.3 12/23/18 06:17 Absolute Neutrophils 1.25 k/cumm (1.2-6.7) 12/23/18 06:17 Absolute Lymphocytes 2.19 k/cumm (1.2-3.4) 12/23/18 06:17 Absolute Monocytes 0.32 k/cumm (0.11-0.7) 12/23/18 06:17 Absolute Eosinophils 0.04 k/cumm (0.0-0.7) 12/23/18 06:17 Absolute Basophils 0.01 k/cumm (0.0-0.2) 12/23/18 06:17 Diff reviewed 12/23/18 06:17 RBC Morphology Normal 12/23/18 06:17 Sodium 143 mmol/L (136-145) 12/23/18 06:17 Potassium 3.6 mmol/L (3.5-5.1) 12/23/18 06:17 Chloride 109 mmol/L (98-107) H 12/23/18 06:17 Carbon Dioxide 28.8 mmol/L (21.0-32.0) 12/23/18 06:17 5.2 mmol/L (3-11) 12/23/18 06:17 BUN 13 mg/dL (7-18) 12/23/18 06:17 0.66 mg/dL (0.55-1.02) 12/23/18 06:17 >= 60.00 (mL/min/1.73m2) 12/23/18 06:17 Glucose 81 mg/dL (70-100) 12/23/18 06:17 1.4 mmol/l (0.6-1.4) 12/22/18 13:55 Calcium 8.0 mg/dL (8.5-10.1) L 12/23/18 06:17 0.3 mg/dL (0.2-1.0) 12/22/18 13:55 AST 13 U/L (15-37) L 12/22/18 13:55 ALT 16 U/L (12-78) 12/22/18 13:55 88 U/L (46-116) 12/22/18 13:55 7.7 g/dL (6.4-8.2) 12/22/18 13:55 3.7 g/dL (3.4-5.0) 12/22/18 13:55 82 U/L (73-393) 12/22/18 13:55 Beta HCG, Quant < 1 mIU/mL (1-3) L 12/22/18 13:55 Yellow (Yellow) 12/22/18 14:45 Clear (Clear) 12/22/18 14:45 7.0 (5-8) 12/22/18 14:45 Ur Specific [place] 1.010 (1.005-1.025) 12/22/18 14:45 Negative mg/dL (Negative) 12/22/18 14:45 Trace mg/dL (Negative) H 12/22/18 14:45 Trace-lysed (Negative) H 12/22/18 14:45 Negative (Negative) 12/22/18 14:45 Negative (Negative) 12/22/18 14:45 0.2 EU/dL (Up TO 0.2) 12/22/18 14:45 Ur Leukocyte Esterase Trace (Negative) H 12/22/18 14:45 Negative (0-2) 12/22/18 14:45 3-5 HPF (0-5) 12/22/18 14:45 Ur Epithelial Cells Few HPF (Negative) 12/22/18 14:45 Negative HPF (Negative) 12/22/18 14:45 Rare HPF (Negative) 12/22/18 14:45 Negative LPF (Negative) 12/22/18 14:45 Negative (Negative) 12/22/18 14:45 Ur Culture Indicated? Yes 12/22/18 14:45 Negative mg/dL (Negative) 12/22/18 14:45 Cancelled 12/22/18 15:41 <2 ug/dl (0-4) 12/22/18 13:55 Objective Narrative Objective Narrative: Patient Name: ANN MARIE HAMPTON #: [id number]: MS Ordering Provider: Jeffery Alfaro DOAccount #: [id number]: ADM JERRY Primary Care Provider: Mayela Crowder Date of Exam: 12/22/18Sex: F : 1990Age: 27 Exam(s) a CT:CT abdomen & pelvis w SYMPTOM/DIAGNOSIS: 1 MONTH RLQ PAIN, SEVERE, REBOUND CT ABDOMEN AND PELVIS: Comparison is made with 29 Oct 2017. Images were performed from the lung bases through the ischial tuberosities after IV and without oral contrast. The lung bases are clear. The liver, gallbladder, spleen, pancreas, kidneys and adrenals appear normal. There is no bowel dilatation or inflammatory change. The appendix appears normal. The bladder and uterus are unremarkable. There are multiple tiny bilateral ovarian follicles. There is a trace, physiological amount of fluid in the pelvis. IMPRESSION: No evidence of appendicitis or other acute abnormality. [id number]: Total DLP = 0.00 mGy-cm Ordered By: Jeffery Alfaro DO CC: Dictated By: Danyell Anthony M.D. 12/23/18 1047 <Electronically signed by Danyell Anthony M.D.> 12/23/18 1342 Transcribed By: Marie Trujillo 12/23/18 1243 This is privileged, confidential information intended only for the provider named. Any use or distribution by any person other than this provider is strictly prohibited. If you receive this report in error, please notify us immediately at [phone] and return the original report to us at the address above. Thank-you.
[2018-12-23 19:05] VITALS: BP 107/73; PULSE 64; RESP 18; TEMP 36.4; O2SAT 99
[2018-12-23 23:29] VITALS: BP 95/62; PULSE 59; RESP 18; TEMP 36.7; O2SAT 98
[2018-12-24] MEDS: Lactated Ringers 1,000 ML 125 ML IV (02:19)
[2018-12-24 03:45] VITALS: BP 121/69; PULSE 63; RESP 16; TEMP 37.2; O2SAT 98
[2018-12-24 07:22] VITALS: BP 122/77; PULSE 51; RESP 17; TEMP 36.4; O2SAT 96
--- NOTE | 2018-12-24 10:46 | W.PM.DS.N ---
Date of service: 12/24/18 Time of Service: 10:46 DS: Diagnosis Discharge Diagnosis (1) Abdominal pain: Status: Acute (2) Ureterolithiasis: Status: Acute Discharge Plan Disposition Patient Disposition: HOME Condition: Stable Discharge Details Chief Complaint: Abd Prob Clinical Impression: Abdominal pain, Vomiting Reason For Visit: RIGHT LOWER QUADRANT ABDOMINAL PAIN,NAUSEA,VOMITIN Admit Date/Time: 12/22/18 16:52 Admit Provider: Denis Heller Attending Provider: Denis Heller Primary Care Provider: Mayela Crowder ED Provider: [facility] Course Hospital Course: 27 y/o female admitted on 12/22/18 for RLQ pain, nausea, and vomiting. CT scan abd/pelvis had reportedly noted some mild swelling of the distal ileum on initial verbal report. Final report noted no bowel abnormality. Trace amount of fluid in the pelvis was noted as well as multiple tiny bilateral ovarian follicles on final report 12/23/18. She was also noted to have marked CVA tenderness on palpation and a h/o kidney stones on presentation. No evidence of stones or hydronephrosis on CT. Urology consult obtained given history and CVA tenderness. No acute urologic issues noted. Her abdominal and back pain have subsided over the past 2 days. She still notes some milder abdominal pain which has now migrated to the right costal margin. She does note some history of fatty food intolerance. No evidence of cholelithiasis or cholecystitis on CT. WBC and LFTs were not elevated on this admission. Nausea and vomiting had resolved. She did vomit her coffee this morning but was able to keep down juice and water. She denies nausea at this time. She is passing flatus. No BM since admission but she has not eaten since admission. Suspect symptoms may have been related to a ruptured ovarian cyst. No signs of acute appendicitis or acute cholecystitis on imaging. Discussed with patient that she should follow-up with her PCP and may need an outpatient gallbladder ultrasound or HIDA scan if abdominal symptoms persist. Will advance to low fat diet as tolerated. Discharge home later today if tolerating po. Patient agreeable with plans. Home Meds and New Rx's Prescriptions: No Action No Known Home Meds RF: 0 Discharge Instructions Instructions: Low Fat Diet (DC), Acute Abdominal Pain (DC) Stand Alone Forms: Nursing Discharge Form Referrals: Ramila Owen MD [ [facility] STAFF PHYSICIAN] - 12/30/18 2:00 pm (Please arrive 15 minutes early.) Activity:: Activity as Tolerated Equipment/Supplies:: No Equipment Needed Diet:: As Tolerated Discharge Orders Discharge Orders: Discharge Order (Routine); Ordered 12/24/18 Ordered By: Denis Heller Discharge Data Discharge Date/Time-TO BE ENTERED AT DEPARTURE: 12/24/18 13:46 Exam Const General: cooperative, comfortable, no acute distress and well developed Nutritional Appearance: well nourished Orientation: alert and oriented x3 HENMT Head: normocephalic and atraumatic Resp Effort & Inspection: normal respiratory effort and able to speak in complete sentences GI Inspection: non-distended Palpation: soft, not firm, no guarding, not rigid and tender (RLQ tenderness resolved, mildly tender along right costal margin, right CVA) Skin General skin exam: no rashes or lesions noted and no jaundice Neuro General: alert and oriented x3 Speech: speech normal DS: Data Vitals/I&O Vitals and I&O: Vital Signs Temperature 36.4 C L 12/24/18 07:22 Temperature Source Tympanic 12/24/18 07:22 Pulse 51 L 12/24/18 07:22 Pulse Rhythm Regular 12/24/18 08:45 Respiratory Rate 17 12/24/18 07:22 Respiratory Effort Non-Labored 12/24/18 08:45 Respiratory Depth Normal 12/24/18 08:45 Respiratory Pattern Normal 12/24/18 08:45 Blood Pressure 122/77 12/24/18 07:22 Pulse Oximetry 96 12/24/18 07:22 Oxygen Delivery Method Room Air 12/24/18 07:22 Oxygen Flow Rate 0 12/24/18 07:22 Pain Level 3 12/24/18 07:22 Comment 12/24/18 03:45 Intake & Output 12/23/18 12/23/18 12/24/18 11:59 23:59 11:59 Intake Total 1690. / 3683.75 2063. / 2063.167 Balance 1690. / 75 Intake: IV 1050.5 / 3043.75 954.167 / 954.167 Oral 640 / 640 1110 / 1110 Other: Urine Appearance Clear Comment Patient voids independently in the bathroom Labs on day of discharge: Labs from last 24 hours 12/22/18 13:55 Venous/Capillary Lead <2 Preliminary micro results at discharge 12/22/18 14:40 Blood Culture - Preliminary Blood NO GROWTH 24 HOURS 12/22/18 14:17 Blood Culture - Preliminary Blood NO GROWTH 24 HOURS PFSH Medical History Nephrolithiasis Surgical History Cystoscopy (09/13/15) Diagnostic Laproscopy (~2008) Family History Grandmother No problems noted. Mother Essential hypertension Father Mental disorder Brother No problems noted. Brother No problems noted. Other Diabetes Social History Smoking/Tobacco Use Status: Never Drug use: Never Do you feel safe in your relationship?: Yes History History Para 2 Hx # Term Pregnancies Multiple births Hx # Pregnancies Ectopic pregnancies AB induced Hx Number of Living Children AB spontaneous
[2018-12-24 11:44] VITALS: BP 111/63; PULSE 55; RESP 18; TEMP 36.7; O2SAT 96
[2018-12-27 16:48] LABS: Porphobilinogen, U <0.1 mcmol/L (<=1.3)
== END 2018-12-24 13:46 | disposition home or self-care (01) ==
LOC: ER 16:06 → MS 18:03
PROVIDERS: Student in an Organized Health Care Education/Training Program; Admitting Provider Surgery; Emergency Provider Nurse Practitioner Family; PCP Nurse Practitioner Family; Visit Provider Surgery
DX: R10.9 Unspecified abdominal pain (principal); Z87.442 Personal history of urinary calculi; R11.2 Nausea with vomiting, unspecified; R93.3 Abnormal findings on diagnostic imaging of other parts of digestive tract
CPT/HCPCS: 36415; 80048; 80053; 83690; 87040; 96361; 96374; 96375; 99222; 99231; 99232; 99238; 99252; 99285; 74177; 81003; 81015; 83605; 83655; 84110; 84702; 85025; 87086; 99284; G0378; J1885; J2405; J2765; J3490

== ENCOUNTER 2019-06-06 11:48 | Outpatient (REF) | payer SELFPAY ==
--- NOTE | 2019-06-06 11:00 | PAPFT_PTH ---
PATIENT: Hiral Neri LOC: [facility] U#:[id number] AGE/SX: 28/F ROOM: RE06/06/[address]: MARGARETTE Rizo : 1990 BED: DIS: 06/06/2019 SPEC #: [id number] RECD: 06/06/19 12:56 STATUS: IGOVANNI REAnshul #: [id number] MAYANK: 06/06/19 11:[address]: Zeina Boyd DEPT: [facility] Cytology RECD BY: Precious Angel ENTERED: 06/06/19 12:56 SP TYPE: PAPFT OTHR DR: Mayela Crowder Tissues: 1 - CX/ENDOCX FOR PAP SMEARS Procedures: PAP THIN PREP/[facility] Screening Comments: [id number]
[2019-06-07 12:27] LABS: Chlamydia Result Negative (Negative); GC Result Negative (Negative)
== END 2019-06-06 12:08 ==
LOC: LBN 11:48
PROVIDERS: PCP Nurse Practitioner Family; Visit Provider Nurse Practitioner Family
DX: Z11.3 Encounter for screening for infections with a predominantly sexual mode of transmission (principal); Z12.4 Encounter for screening for malignant neoplasm of cervix
CPT/HCPCS: 87491; 87591; 88142

== ENCOUNTER 2019-09-29 10:04 | Outpatient (CLI) | payer SELFPAY ==
--- NOTE | 2019-09-29 15:00 | DI.RAD_ITS ---
EXAM: 2D digital imaging was performed. CLINICAL HISTORY: left flank pain, hx renal calculi, Z87.442, one day flank pain. COMPARISON: LUMBAR SPINE COMPLETE from 01/22/2018 CT ABDOMEN PELVIS W from 12/22/2018 TECHNIQUE: Supine views of the abdomen performed. FINDINGS: BOWEL GAS PATTERN: Nondistended. Mild amount of retained stool present. No evidence to suggest bowel obstruction. CALCIFICATIONS: No radiopaque calcifications. Stable phleboliths are seen in the pelvis. OSSEOUS STRUCTURES: Normal for age. OTHER FINDINGS: No acute osseous abnormality. LUNG BASES: Not included on this examination. IMPRESSION: 1. Nonobstructive bowel gas pattern. 2. No radiopaque calculi. DATA REPOSITORY: RADIATION DOSE DELIVERED:
== END 2019-09-29 10:24 ==
PROVIDERS: PCP Nurse Practitioner Family; Visit Provider Nurse Practitioner Gerontology
DX: R10.32 Left lower quadrant pain (principal); Z87.442 Personal history of urinary calculi; R19.8 Other specified symptoms and signs involving the digestive system and abdomen
CPT/HCPCS: 74018

== ENCOUNTER 2019-11-24 19:45 | Outpatient (REF) | payer BC, SELFPAY ==
[2019-11-26 10:45] LABS: COVID-19 RT-PCR UVMMC Result Negative (Negative)
== END 2019-11-24 20:05 ==
LOC: NCHCN 19:45
PROVIDERS: PCP Nurse Practitioner Family; Visit Provider Nurse Practitioner Family
DX: J02.9 Acute pharyngitis, unspecified (principal)
CPT/HCPCS: U0003

== ENCOUNTER 2019-12-07 14:03 | Outpatient (REF) | payer BC, SELFPAY ==
[2019-12-12 12:05] LABS: SARS-CoV-2 RNA Undetected (Undetected); SARS-CoV-2 Specimen Source Nasopharynx
== END 2019-12-07 14:23 ==
LOC: NCHCN 14:03
PROVIDERS: PCP Nurse Practitioner Family; Visit Provider Nurse Practitioner Family
DX: Z20.828 Contact with and (suspected) exposure to other viral communicable diseases (principal)
CPT/HCPCS: U0003

== ENCOUNTER 2019-12-26 13:19 | Outpatient (CLI) | payer BC, SELFPAY ==
--- NOTE | 2019-12-26 | DI.RAD_ITS ---
EXAM: XR LUMBAR SPINE COMPLETE CLINICAL HISTORY: BACK PAIN, M54.9. TECHNIQUE: 2D digital imaging was performed. COMPARISON: No exams were available for comparison FINDINGS: BONES: No fracture or destructive lesion. Vertebral bodies are unremarkable. No facet hypertrophy juan ntified. DISKS: Intervertebral disc spaces are maintained. ALIGNMENT: Lumbar spinal alignment is within normal limits. SOFT TISSUE: Normal. IMPRESSION: Unremarkable radiographs of the lumbar spine. DATA REPOSITORY: RADIATION DOSE DELIVERED:
--- NOTE | 2019-12-26 10:46 | DI.RAD_ITS ---
EXAM: XR THORACIC SPINE COMPLETE CLINICAL HISTORY: BACK PAIN, M54.9. TECHNIQUE: 2D digital imaging was performed. COMPARISON: CR CHEST 2 VIEWS PA,LAT from 08/07/2015 FINDINGS: BONES: There is no fracture or destructive lesion. There is stable mild anterior wedging of the T7 ve rtebral body compared with the previous chest x-ray. DISKS:Alignment is within normal limits. No significant scoliosis. Interverebral disc spaces are ma intained. SOFT TISSUE: Visualized lungs are clear. IMPRESSION: Stable minimal anterior wedging of the T7 vertebral body. DATA REPOSITORY: RADIATION DOSE DELIVERED:
== END 2019-12-26 13:39 ==
PROVIDERS: PCP Nurse Practitioner Family; Visit Provider Physician Assistant
DX: M54.9 Dorsalgia, unspecified (principal); M48.54XA Collapsed vertebra, not elsewhere classified, thoracic region, initial encounter for fracture
CPT/HCPCS: 72072; 72110

== ENCOUNTER 2020-02-21 16:21 | Outpatient (REF) | payer BC, SELFPAY ==
[2020-02-24 19:57] LABS: Patient Race White; SARS-CoV-2 RNA Undetected (Undetected); SARS-CoV-2 Specimen Source Nasal
== END 2020-02-21 16:41 ==
LOC: NCHCN 16:21
PROVIDERS: PCP Nurse Practitioner Family; Visit Provider Nurse Practitioner Family
DX: Z20.828 Contact with and (suspected) exposure to other viral communicable diseases (principal)
CPT/HCPCS: U0003

== ENCOUNTER 2020-10-26 14:10 | Outpatient (REF) | payer MEDICAID, SELFPAY ==
[2020-10-26 19:02] LABS: HGB 13.1 g/dL (11.2-15.7); MCH 29.6 pg (27.0-33.0); MCHC 32.8 % (32.0-36.0); MCV 90.3 fL (80-95); MPV 9.7 fL (8.0-11.0); Platelet Count 318 10^3/uL (130-400); RBC 4.43 10^6/uL (3.93-5.22); RDW 12.6 % (11.7-14.6); RDW-SD 41.2 fL; WBC 6.84 10^3/uL (4.4-10.8)
== END 2020-10-26 14:11 | disposition home or self-care (01) ==
LOC: NCHCN 14:10
PROVIDERS: PCP Nurse Practitioner Family; Visit Provider Nurse Practitioner Family
DX: R10.31 Right lower quadrant pain (principal); R10.2 Pelvic and perineal pain; N94.10 Unspecified dyspareunia
CPT/HCPCS: 80053; 85027

== ENCOUNTER 2020-11-06 02:40 | Outpatient (CLI) | payer MEDICAID, SELFPAY ==
[2020-11-06] MEDS: Breeza Beverage 473 ML BTL PO ×2 (08:34→08:35)
[2020-11-06] MEDS: Omnipaque 350 MG/ML 100 ML BTL IJ (09:42)
[2020-11-06] MEDS: Normal Saline - Diluent 50 ML VIAL IV (09:43)
--- NOTE | 2020-11-06 10:15 | DI.CT_ITS ---
Exam(s) CT ABDOMEN PELVIS W EXAM: CT ABDOMEN PELVIS W CLINICAL HISTORY: RLQ ABD PAIN,R10.31,PELVIC PAIN,R10.2,COSTOVERTEBRAL PAIN TECHNIQUE: Imaging Protocol: Axial computed tomography images with coronal and sagittal reformatted images were created and reviewed CONTRAST MATERIAL: Intravenous: Omnipaque 350 Contrast volume:100 mL Oral: Yes COMPARISON: CT CT ABDOMEN PELVIS W from 12/22/2018 FINDINGS: ABDOMEN: Lung Bases: Normal where visualized. Liver: Normal density. No measurable mass. There is a tiny density in the inferior right lobe of the liver. It is too small for further characterization, but likely reflects a small cyst. Portal, Superior Mesenteric, and Splenic Veins: Unremarkable. Gallbladder and Biliary Tract: No radiodense calculus or dilation. Pancreas: Normal density, no abnormal calcifications or inflammatory process. Spleen: Normal. Adrenals: No masses seen. Kidneys: Normal size, contour and axis. No radiodense stones or obstructive uropathy. No masses seen. Abdominal Aorta: Abdominal portion non-dilated. Bowel: No obstruction or bowel wall thickening. Appendix is unremarkable. Peritoneal Cavity: No ascites, collection or mesenteric inflammatory response. No free air. Lymph Nodes: Within normal limits. Bones: Within normal limits for the patient's age. Soft Tissues: Unremarkable. PELVIS: Bladder: Symmetric distention, no gross wall thickening. Reproductive Organs: Unremarkable as visualized. Lymph Nodes: Within normal limits. Bones: Within normal limits for the patient's age. IMPRESSION: 1. No acute abdominal or pelvic process. 2. No evidence of acute appendicitis, biliary ductal dilatation or hydronephrosis. RADIATION DOSE DELIVERED: 895.42mGy.cm Total DLP DATA REPOSITORY: All CT scans at this facility are submitted to the National Radiology Data Registry (NRDR) Dose Index Registry (DIR) with the [employer] (ACR). RADIATION OPTIMIZATION: All CT scans at this facility use at least one of these dose optimization te chniques: automated exposure control; mA and/or kV adjustment per patient size (includes targeted exa ms where dose is matched to clinical indication); or iterative reconstruction.
== END 2020-11-06 03:00 ==
PROVIDERS: PCP Nurse Practitioner Family; Visit Provider Nurse Practitioner Family
DX: R10.31 Right lower quadrant pain (principal); R10.2 Pelvic and perineal pain
CPT/HCPCS: 74177; J3490

== ENCOUNTER 2021-01-03 08:00 | Outpatient (CLI) | payer MEDICAID, SELFPAY ==
--- NOTE | 2021-01-03 08:00 | DI.US_ITS ---
Exam(s) US PELVIS TRANSVAGINAL EXAM: US PELVIS TRANSVAGINAL CLINICAL HISTORY: Pelvic pain, menorrhagia,n92.0,r10.2 TECHNIQUE: Ultrasound of the pelvis was performed transabdominally. Transvaginal ultrasound is appa rently refused by the patient.. COMPARISON: US RENAL ULTRASOUND(P) from 01/26/2018 CT scan 11/06/2020 was reviewed FINDINGS: UTERUS: 6.7 Measures 6.6 cm length x 4.3 cm AP x 3.9 cm wide. There are no uterine fibroids. Endometrial thickness measures 5-6 mm. There is no fluid in the endometrial canal. CERVIX: There are no obvious nabothian cysts. RIGHT OVARY: Measures 3.3 x 2.1 x 2.8 cm. Vascular flow demonstrated in both ovaries. Cm Follicular cyst measuring 8 by 10 millimeters noted. LEFT OVARY: Measures 4.2 x 2.6 x 2.1 cm There are small follicles in left ovary. Dominant follicular cyst in left ovary measures 1.7 x 1.4 x 1.7 cm. CUL-DE-SAC: No free fluid evident. IMPRESSION: 1. Normal appearing uterus and age-appropriate endometrium. 2. No abnormal ovarian findings. Largest follicular cysts measure on today's study is in the left ov joanna and measures 17 x 14 millimeter. 3. No free fluid evident in the adnexal regions and cul-de-sac. DATA REPOSITORY:
== END 2021-01-03 08:20 ==
PROVIDERS: PCP Nurse Practitioner Family; Visit Provider Nurse Practitioner Women's Health
DX: N92.0 Excessive and frequent menstruation with regular cycle (principal); N83.02 Follicular cyst of left ovary
CPT/HCPCS: 76830; 76856

== ENCOUNTER 2021-07-25 11:32 | Emergency (ER) | payer MEDICAID, SELFPAY ==
[2021-07-25 11:37] VITALS: BP 125/71; PULSE 93; RESP 16; TEMP 37; O2SAT 99
[2021-07-25 11:44] VITALS: BP 125/71; PULSE 75; PULSE 78; RESP 20
[2021-07-25 11:45] VITALS: PULSE 72; RESP 19
[2021-07-25 11:46] VITALS: BP 129/88; PULSE 67; PULSE 77; RESP 14; O2SAT 98
[2021-07-25 11:50] VITALS: PULSE 72; RESP 21; O2SAT 99
--- NOTE | 2021-07-25 12:13 | W.ED.GENAD ---
Discharge Plan Disposition Patient Disposition: HOME Condition: Stable Discharge Details Clinical Impression: Fall at home, Right rib fracture, Contusion of right shoulder, Right ankle sprain Primary Care Provider: Mayela Crowder ED Provider: Luz Marina Bowers Home Meds and New Rx's Prescriptions: New oxycodone 5 mg tablet 5 mg PO Q6H PRN (Reason: pain) Qty: 7 0RF Continued meclizine 25 mg tablet 25 mg PO PRN0RF Label Comments: TAKE ONE TABLET BY MOUTH THREE TIMES A DAY NEEDED FOR VERTIGO albuterol sulfate [ProAir HFA] 90 mcg/actuation HFA aerosol inhaler INHALATION 0RF Label Comments: INHALE TWO PUFFS BY MOUTH EVERY 4 TO 6 HOURS NEEDED DIRECTED Discharge Instructions Instructions: Ankle Sprain (ED), Rib Fracture (ED), Contusion in Adults (ED) Additional Instructions: Your x-rays today noted evidence of a rib fracture. The remainder of your x-rays were reassuring and showed no evidence of fracture or other acute findings. Drink plenty of fluids and get plenty of rest. Alternate tylenol and motrin as needed and directed for pain. Take the oxycodone for pain not relieved with Tylenol or Motrin. Take the Zofran as needed and directed for nausea and vomiting. Apply ice to the affected area several times daily for 20 minutes at a time. Use the incentive spirometer as directed to prevent the development of pneumonia. Follow-up with your primary care doctor in 1 week. Return to the emergency department with any worsening or new concerning symptoms. Discharge Data Discharge Date/Time-TO BE ENTERED AT DEPARTURE: 07/25/21 14:20 Discharge Physician: Luz Marina Bowers Medical Decision Making 30 old female presents with right shoulder, right ribs and right ankle pain after fall down 13 steps last night. Patient arrived to the ED crying and holding her right ribs. Her vitals are within normal limits. She has normal oxygen saturation. She has reproducible tenderness to her right upper and mid lateral back and right anterior inferior chest. She has pain in right shoulder with range of motion but no obvious deformity. She has healing ecchymosis which is likely from an old injury to her right medial ankle but with pain with range of motion to the right anterior ankle. Will obtain right ribs and PA lateral chest x-ray, right shoulder and right ankle x-ray. Patient drove herself to the ED. Will give ibuprofen, Lidoderm patch. Patient denies and declined to provide urine for test and signed a waiver. X-rays reviewed and note a right 11th rib fracture. No evidence of pneumothorax. Remainder of imaging negative. Patient states she is unable to obtain a ride home. Patient drove herself here. Informed patient that I cannot give narcotic pain medication and that she can ride home. Offered to call a taxi but she states she would rather drive home. Nursing had none at assessment and patient had endorsed dizziness, nausea and headache. Discussed with patient again and she denied any head or neck injury. Discussed with patient that we can obtain CT head and C-spine imaging if she is unsure but she is certain she did not sustain a head injury and she declines CT imaging. Informed patient that if her symptoms change or worsen, she can return to the ED for additional imaging at that time. Patient was able to ambulate and feels comfortable driving home. She was given oxycodone to go and a prescription. She was also given incentive spirometer. Advised to follow up with the primary care doctor for re-evaluation. Usual and customary return precautions given prior to discharge. Medical Records Medical records reviewed: Yes I reviewed the patient's medical records. Imaging Data Radiologic Study: Radiologist's impression: ?XR RIBS RT W PA ? LAT CHEST CLINICAL HISTORY:? s/p fall, r/o acute fx R posterolateral ribs TECHNIQUE:? 2D digital imaging was performed. COMPARISON:? CR CHEST 2 VIEWS PA,LAT from 08/07/2015 FINDINGS: Right rib cage: There is a fracture of the right 11th rib without obvious displacement. Chest x-ray: No lung contusion or pleural effusion and no pneumothorax evident.? No mediastinal shift.? Heart size normal. IMPRESSION: 1. Nondisplaced fracture of the right 11th rib noted 2. No significant pulmonary findings.? No pneumothorax. XR SHOULDER RT COMPLETE 2+V CLINICAL HISTORY: ? s/p fall, r/o fx. ? TECHNIQUE:? 2D digital imaging was performed. COMPARISON:? No exams were available for comparison FINDINGS: No evidence of fracture or dislocation.? No abnormal soft tissue calcifications.? No degenerative changes.? Bone density normal. XR ANKLE RT COMPLETE CLINICAL HISTORY: ? s/p fall, r/o fx. ? TECHNIQUE:? 2D digital imaging was performed. COMPARISON:? No exams were available for comparison FINDINGS: No evidence of fracture or widening of the mortise.? Talar dome unremarkable.? Bone density normal.? No degenerative changes.? No osseous lesions.? No tarsal coalition evident. HPI General Mode of arrival: ambulatory. Date/Time Provider Initiated Documentation: 07/25/21 11:33. Limitations to Documentation: no limitations. Information obtained by: patient. HPI Narrative: Patient is a 30-year-old female who presents to the ED with complaint of right shoulder, right rib and right ankle pain after fall down stairs last night. Patient states she tripped over her new kitten and fell down approximately 13 steps and hitting which she states approximately [address] down. She denies any head injury, LOC or vomiting. She states she is mainly having pain in the right shoulder, right ribs and right ankle. She took Tylenol this morning without relief. She states she called [facility] and was referred here for further evaluation. She states she is having pain in her right anterior ribs radiating from her back and causing pain with deep breath. She states she has been able to ambulate but with increased pain in her right ankle. She denies any neck pain, back pain, abdominal pain, left arm or left leg pain. Related Data Home Medications Medication Instructions Recorded Confirmed albuterol sulfate 90 mcg/actuation INHALATION 07/25/21 aerosol inhaler (ProAir HFA) meclizine 25 mg tablet 25 mg PO PRN 07/25/21 oxycodone 5 mg tablet 5 mg PO Q6H PRN #7 tab 07/25/21 Previous Rx's Medication Instructions Recorded oxycodone 5 mg tablet 5 mg PO Q6H PRN #7 tab 07/25/21 Allergies Allergy/AdvReac Type Severity Reaction Status Date / Time mushroom Allergy Severe Anaphylaxsi Verified 07/25/21 11:41 s FIGS Allergy Unknown Swelling/Ed Uncoded 07/25/21 11:41 rigo General Stated Complaint: Trauma JERRY: 2 Review of Systems All systems reviewed & are unremarkable except as noted in HPI and below Constitutional Constitutional: Reports as per HPI, Denies chills, Denies excessive sweating, Denies fatigue and Denies fever(s) Eyes Eyes: Denies blurry vision ENT Ears, Nose, Mouth, and Throat: Denies dizziness, Denies sore throat and Denies throat swelling Cardiovascular Cardiovascular: Denies chest pain and Denies dyspnea Respiratory Respiratory: Denies cough and Denies dyspnea Gastrointestinal Gastrointestinal: Denies abdominal pain, Denies diarrhea and Denies vomiting Genitourinary Genitourinary: Denies hematuria and Denies dysuria Musculoskeletal Musculoskeletal: Denies back pain and Denies numbness Integumentary/Breasts Skin/Breast: Denies lesions and Denies rash Neurologic Neurologic: Denies behavioral changes, Denies confusion, Denies dizziness, Denies localized weakness and Denies numbness Psychiatric Psychiatric: Denies behavioral changes, Denies confusion and Denies depression Endocrine Endocrine: Denies excessive sweating and Denies fatigue Hematologic/Lymphatic Hematologic/Lymphatic: Denies easy bruising and Denies lymphadenopathy Allergic/Immunologic Allergic/Immunologic: Denies throat swelling PFSH All Active Problems (Updated 07/25/21 @ 13:57 by Luz Marina Bowers DO) Fall at home (Acute) Right rib fracture (Acute) Contusion of right shoulder (Acute) Right ankle sprain (Acute) Vaginismus (Acute) Pain in pelvis (Acute) Dyspareunia (Acute) test positive (Acute) Medical History (Updated 07/25/21 @ 13:57 by Luz Marina Bowers DO) Menorrhagia with regular cycle Nephrolithiasis Surgical History Cystoscopy (09/13/15) With bilateral retrograde pyelograms Dr. Angel Yoder Diagnostic Laproscopy (~2008) right ovarian cystectomy [facility] Family History (Updated 11/20/20 @ 09:15 by Evelyne Lyles NP) Grandmother , Maternal Cancer Ovarian Mother Essential hypertension Hypertension. 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 [employer] Sexually active: Yes Do you think of yourself as: straight/heterosexual Current gender identity: female Do you feel safe in your relationship?: Yes Female Reproductive History Menstrual control method: other (partner with vasectomy) History History 3 Para 3 Hx # Term Pregnancies Multiple births Hx # Pregnancies Ectopic pregnancies AB induced Hx Number of Living Children AB spontaneous Exam Const General: cooperative and uncomfortable (tearful, crying, holding her R ribs) Orientation: alert, awake and oriented x3 HENMT Head: normal to inspection Ears: hearing grossly normal bilaterally, external ears normal and TM's normal bilaterally General nose exam: external nose normal Face and sinus: normal facial exam Mouth: oral mucosae normal Teeth and gingiva: dentition normal Throat: posterior oropharynx normal Eyes General: appearance normal, both eyes and all related structures Eyelids: eyelids normal Pupils: PERRL EOM: EOM intact bilaterally Neck Neck: normal visual inspection Lymphatic: no lymphadenopathy noted Chest Chest: normal inspection of the chest Chest/axillae images: 1. Tenderness to palpation to right anterior inferior ribs. Resp Effort & Inspection: normal respiratory effort and able to speak in complete sentences Auscultation: clear to auscultation bilaterally Cardio Rate: regular rate Rhythm: regular rhythm GI Inspection: normal to inspection Palpation: soft, not firm, no guarding, no hepatosplenomegaly, no masses and nontender Auscultation: normal bowel sounds Back/Spine/Pelvis Cervical Spine: No cervical spinal tenderness Thoracic/Lumbar Spine: thoracic spinal tenderness (minimal, upper) and No lumbar spinal tenderness Skin General skin exam: no rashes or lesions noted Neuro General: patient alert and patient awake Cognition: normal cognition Speech: speech normal Gait: normal gait Motor: muscle tone normal throughout Sensory Exam: no sensory deficits noted Extrem Other: Pain in right shoulder with range of motion. There is tenderness to palpation to right anterior and posterior shoulder. There is no obvious deformity. Remainder of right upper extremity without trauma or pain with range of motion. She has healing ecchymosis noted to the right anterior medial ankle. There is tenderness to palpation to the right anterior ankle without evidence of edema, crepitus, deformity. Remainder of bilateral upper and lower extremities without evidence of trauma or pain with range of motion. Bilateral distal pulses intact. Psych Appearance: grossly normal Mental Status: mental status grossly normal Speech and Movement: speech and movement normal Affect: normal affect Thought Process: normal Course Vital Signs Vital signs: Vital Signs Temperature 98.6 F 07/25/21 11:37 Pulse 93 H 07/25/21 11:37 Respiratory Rate 16 07/25/21 11:37 Blood Pressure 125/71 07/25/21 11:37 Pulse Oximetry 99 07/25/21 11:37 Temperature 98.6 F 07/25/21 11:37 Temperature Source Skin 07/25/21 11:37 Pulse 67 07/25/21 11:46 Pulse 72 07/25/21 11:50 Respiratory Rate 21 07/25/21 11:50 Respiratory Effort 07/25/21 11:37 Blood Pressure 129/88 07/25/21 11:46 Blood Pressure Mean 97 07/25/21 11:46 Blood Pressure Position Supine 07/25/21 11:37 Pulse Oximetry 99 07/25/21 11:50 Oxygen Delivery Method Room Air 07/25/21 11:37 Oxygen Flow Rate 0 07/25/21 11:37 Pain Level 10 07/25/21 11:37
[2021-07-25] MEDS: Lidocaine 5% Patch 1 PATCH TP (13:11)
[2021-07-25] MEDS: Ibuprofen 600 MG TAB PO (13:12)
--- NOTE | 2021-07-25 13:13 | DI.RAD_ITS ---
Exam(s) XR ANKLE RT COMPLETE EXAM: XR ANKLE RT COMPLETE CLINICAL HISTORY: s/p fall, r/o fx. TECHNIQUE: 2D digital imaging was performed. COMPARISON: No exams were available for comparison FINDINGS: No evidence of fracture or widening of the mortise. Talar dome unremarkable. Bone density normal. No degenerative changes. No osseous lesions. No tarsal coalition evident. IMPRESSION: DATA REPOSITORY: RADIATION DOSE DELIVERED:
--- NOTE | 2021-07-25 13:13 | DI.RAD_ITS ---
Exam(s) XR RIBS RT W PA LAT CHEST EXAM: XR RIBS RT W PA LAT CHEST CLINICAL HISTORY: s/p fall, r/o acute fx R posterolateral ribs TECHNIQUE: 2D digital imaging was performed. COMPARISON: CR CHEST 2 VIEWS PA,LAT from 08/07/2015 FINDINGS: Right rib cage: There is a fracture of the right 11th rib without obvious displacement. Chest x-ray: No lung contusion or pleural effusion and no pneumothorax evident. No mediastinal shift . Heart size normal. IMPRESSION: 1. Nondisplaced fracture of the right 11th rib noted 2. No significant pulmonary findings. No pneumothorax. DATA REPOSITORY: RADIATION DOSE DELIVERED:
--- NOTE | 2021-07-25 13:14 | DI.RAD_ITS ---
Exam(s) XR SHOULDER RT COMPLETE 2+V EXAM: XR SHOULDER RT COMPLETE 2+V CLINICAL HISTORY: s/p fall, r/o fx. TECHNIQUE: 2D digital imaging was performed. COMPARISON: No exams were available for comparison FINDINGS: No evidence of fracture or dislocation. No abnormal soft tissue calcifications. No degenerative manasa nges. Bone density normal. IMPRESSION: No fracture evident. DATA REPOSITORY: RADIATION DOSE DELIVERED:
[2021-07-25] MEDS: Ondansetron O.D.T. 4 MG TABEF, 3 TABS/BTL PO (14:10)
[2021-07-25 14:14] VITALS: BP 116/70; PULSE 73; RESP 18; O2SAT 99
== END 2021-07-25 14:20 | disposition home or self-care (01) ==
PROVIDERS: Emergency Provider Physician Assistant; PCP Nurse Practitioner Family
DX: S22.31XA Fracture of one rib, right side, initial encounter for closed fracture (principal); S40.011A Contusion of right shoulder, initial encounter; S93.491A Sprain of other ligament of right ankle, initial encounter; W10.8XXA Fall (on) (from) other stairs and steps, initial encounter
CPT/HCPCS: 99284; 71046; 71100; 73030; 73610; 99283

== ENCOUNTER 2021-08-09 02:46 | Outpatient (CLI) | payer MEDICAID, SELFPAY ==
--- NOTE | 2021-08-09 | DI.MRI_ITS ---
Exam(s) MR LOWER JOINT RT WO EXAM: MR LOWER JOINT RT WO CLINICAL HISTORY: RT ANKLE PAIN M25.571 INCREASED SWELLING AND PAIN AFTER FALL W/ BRUISING TECHNIQUE: Multiplanar multisequence MRI of the right ankle was performed. COMPARISON: CR XR ANKLE RT COMPLETE from 07/25/2021 FINDINGS: SKIN-SUBCUTANEOUS TISSUES: There is no evidence of skin ulcer nor subcutaneous tract. No subcutaneou s fluid collection evident. MARROW:There is no evidence of fracture, bone contusion, nor osteochondral defects.. There are no si gnificant osseous lesions. Talar dome appears unremarkable. There is no os trigonum. ARTICULATIONS: No obvious chondral defects. No osteochondral defects. Minimal amount of increased f luid in the ankle-tibiotalar joint, mostly posteriorly. This has appearance of a septated collection related to the posterior talofibular ligament, this measuring 1.8 cm wide by 0.8 cm AP x 0.8 cm cran iocaudal. There is a small degenerative subarticular cyst in the inner aspect of the lateral malleolus which me asures 4 x 3 millimeters. Subtalar joint unremarkable. Talonavicular and calcaneocuboid joints unremarkable. Midfoot articula tions unremarkable. SINUS TARSI: Preserved fat signal. Interosseous ligament intact. No evidence of sinus tarsi ganglio n cyst. LIGAMENTS: Anterior and posterior tibiofibular ligaments are intact. Anterior talofibular ligament i s intact. No abnormal signal in the anterolateral gutter. Posterior talofibular ligament is intact although in the vicinity of the above described para-articular ganglion cyst. Fibula calcaneal ligam ent appears intact. On the opposite side of the ankle of the deltoid ligament appears intact. PLANTAR FASCIA: Unremarkable. No abnormal signal nor nodularity. ACHILLES TENDON: Unremarkable. Normal thickness. No abnormal signal therein. No abnormal signal wi thin the pre Achilles fat. Trace fluid in the retrocalcaneal bursa. No prominent bursitis. TENDONS: Medial tendons: The tibialis posterior and flexor digitorum tendons appear intact. No tear. There i s mild in the flexor digitorum tendon sheath at the level of the medial malleolus. No prominent teno synovitis. Flexor hallucis longus appears unremarkable. No tear nor tenosynovitis. Lateral tendons: Peroneus longus and brevis exhibit normal position and signal. No tears. No tenosy novitis. Peroneus brevis attachment to the base of the 5th metatarsal appears intact and there is no abnormality of the 5th metatarsal base. Dorsal tendons: Unremarkable. No tears. No tenosynovitis. IMPRESSION: 1. No evidence of fracture, bone contusion, tendon tears, tenosynovitis, nor obvious ligament tears. No prominent joint effusions. 2. There is a septated ganglion cyst measuring 18 millimeters x 8 millimeters x 8 millimeter located off the posterolateral ankle, medial to the lateral malleolus at the level of the (intact) posterior talofibular ligament. 3. Achilles tendon and plantar fascia appear unremarkable. DATA REPOSITORY:
== END 2021-08-09 03:06 ==
PROVIDERS: PCP Nurse Practitioner Family; Visit Provider Nurse Practitioner Family
DX: M25.571 Pain in right ankle and joints of right foot (principal); M67.471 Ganglion, right ankle and foot
CPT/HCPCS: 73721

== ENCOUNTER 2021-09-12 01:46 | Outpatient (CLI) | payer MEDICAID, SELFPAY ==
--- NOTE | 2021-09-12 06:29 | DI.MRI_ITS ---
Exam(s) MR UPPER EXTREMITY RT WO EXAM: MR UPPER EXTREMITY RT WO CLINICAL HISTORY: eval R scapulothoracic crepitus and pain, s/p fall,m75.51,bursitis. TECHNIQUE: Multiplanar multisequence MRI was performed. COMPARISON: CR XR RIBS RT W PA LAT CHEST from 07/25/2021 FINDINGS: MR examination of the right scapulothoracic region was performed utilizing multi planar imaging with PD, T1, and T2 fat sat/stir imaging. No significant bony signal abnormality seen involving the visualized ribs or the scapula. Humeral he ad shows normal signal as does the clavicle. There is no increased signal of or adjacent to the scap angy or associated with expected regions of scapulothoracic impingement. Note is made of a small right pleural effusion, nonspecific. Please correlate regarding any pleuriti c symptoms. IMPRESSION: No MR evidence of scapulothoracic impingement. Small right pleural effusion noted. DATA REPOSITORY:
== END 2021-09-12 02:06 ==
PROVIDERS: PCP Nurse Practitioner Family; Visit Provider Student in an Organized Health Care Education/Training Program
DX: M25.511 Pain in right shoulder; M75.41 Impingement syndrome of right shoulder; J90 Pleural effusion, not elsewhere classified; M75.51 Bursitis of right shoulder
CPT/HCPCS: 73218

== ENCOUNTER 2022-02-10 16:14 | Outpatient (REF) | payer MEDICAID, SELFPAY ==
--- NOTE | 2022-02-10 15:45 | PAPFT_PTH ---
PATIENT: Hiral Neri LOC: [facility] U#:[id number] AGE/SX: 31/F ROOM: RE02/10/[address]: Evelyne Lyles NP : 1990 BED: DIS: 02/10/2022 SPEC #: [id number] RECD: 02/10/22 17:49 STATUS: GIOVANNI REAnshul #: [id number] MAYANK: 02/10/22 15:[address]: Evelyne Lyles NP DEPT: [facility] Cytology RECD BY: Precious Angel ENTERED: 02/10/22 17:49 SP TYPE: PAPFT OTHR DR: Mayela Crowder Tissues: 1 - CX/ENDOCX FOR PAP SMEARS Procedures: PAP THIN PREP/UVM Screening HPV DNA PROBE Comments: [id number]
== END 2022-02-10 16:15 | disposition home or self-care (01) ==
LOC: LBN 16:14
PROVIDERS: PCP Nurse Practitioner Family; Visit Provider Nurse Practitioner Women's Health
DX: Z12.4 Encounter for screening for malignant neoplasm of cervix (principal); Z11.51 Encounter for screening for human papillomavirus (HPV)
CPT/HCPCS: 88142; 87624

== ENCOUNTER → 2022-02-14 00:29 | Outpatient (CLI) | payer MEDICAID, SELFPAY ==
--- NOTE | 2022-02-14 06:45 | DI.US_ITS ---
Exam(s) US BREAST RT COMPLETE MG MAMMO DIAGNOSTIC BI EXAM: MG MAMMO DIAGNOSTIC BI AND COMPLETE RIGHT BREAST ULTRASOUND CLINICAL HISTORY: tender lump, 7:00, by areola border,rt, n63.10. TECHNIQUE: BOTH CC AND MLO mammographic images were obtained with 3D tomosynthesis technique and uti lizing computer aided detection (CAD). Also performed complete right breast ultrasound including all 4 quadrants, the retroareolar region, a nd the right axilla. COMPARISON: None. This is a baseline diagnostic mammogram on this young patient who apparently felt a right breast lump. Today she claims that it has significantly decreased in size and as she no jose alberto rivera feels the lump. FINDINGS: BILATERAL DIAGNOSTIC MAMMOGRAM: The fibroglandular tissue pattern is moderately dense. There are no spiculated masses nor malignant-appearing microcalcification groups in either breast. N o significant architectural distortion or skin thickening-traction. COMPLETE RIGHT BREAST ULTRASOUND: There is no evidence of solid or significant cystic lesions in all 4 quadrants of the right breast nor in the retroareolar region. In the area of clinical concern (acc ording to the patient) which is located laterally there is dense tissue pattern on ultrasound but no discernible cyst or nodule. Scanning of the ipsilateral right axilla is negative for significant adenopathy. IMPRESSION: No radiographic evidence of malignancy Also negative complete right breast ultrasound. Appropriate follow-up, as discussed by myself with the patient today, is repeat ultrasound if she fee ls that this lump returns. The patient was informed of the findings and follow-up recommendations by myself prior to leaving the department today. BI-RADS Category 2 - Benign Findings Breast Density - Category C - Heterogeneously dense Breast density Category C or D implies that the patient has dense breast tissue. Dense breast tissue can make it harder to find cancer on a mammogram. Dense breast tissue is also associated with an incr eased risk of breast cancer. This information about the result of the mammogram report was provided to the patient to raise their awareness. Use this report when you speak with the patient about their risks for breast cancer, which includes their family history. At that time, you may recommend additional screening tests (Ultrasoun d or MRI) as these tests may add significant information. A negative radiographic report should not delay biopsy if a dominant or clinically suspicious mass is present. Up to ten percent of cancers are not identified on mammography. A negative report may reinforce clinical impression. Adenosis and dense breasts may obscure an underlying neoplasm. False positive reports average 6 to 10%. Patient will receive a letter notifying them of these results.
== END ==
PROVIDERS: PCP Nurse Practitioner Family; Visit Provider Nurse Practitioner Women's Health
DX: N63.13 Unspecified lump in the right breast, lower outer quadrant (principal); R92.2 Inconclusive mammogram
CPT/HCPCS: 76642; 77062; 77066; G0279

== ENCOUNTER 2022-06-26 15:10 | Outpatient (REF) | payer MEDICAID, SELFPAY ==
[2022-06-26 18:22] LABS: Abs Immature Grans 0.01 10^3/uL (0.0-0.06); Absolute Basophil Count 0.04 10^3/uL (0.0-0.2); Absolute Eosinophil Count 0.02 10^3/uL (0.0-0.7); Absolute Lymphocyte Count 2.11 10^3/uL (1.2-3.4); Absolute Monocyte Count 0.41 10^3/uL (0.1-0.8); Absolute Neutrophil Count 4.08 10^3/uL (1.2-6.7); Basophils % 0.6; Eosinophils % 0.3; HCT 43.4 % (36.0-46.0); HGB 14.2 g/dL (11.2-15.7); Immature Grans % 0.1; Lymphocytes % 31.6; MCH 29.3 pg (27.0-33.0); MCHC 32.7 % (32.0-36.0); MCV 90 fL (80-95); MPV 9.2 fL (8.0-11.0); Monocytes % 6.1; Neutrophils % 61.3; Platelet Count 379 10^3/uL (130-400); RBC 4.85 10^6/uL (3.93-5.22); WBC 6.67 10^3/uL (4.4-10.8)
[2022-06-26 18:23] LABS: Bilirubin Negative (Negative); Blood Negative (Negative); Clarity Clear (Clear); Glucose Negative (Negative); Ketones 15 mg/dL (Negative); Leukocyte Esterase Negative (Negative); Nitrite Negative (Negative); Specific Gravity 1.025 (1.005-1.025)
[2022-06-26 18:48] LABS: ALT 18 U/L (14-59); AST 24 U/L (15-37); Albumin 4.2 g/dL (3.4-5.0); Alkaline Phosphatase 90 U/L (46-116); Anion Gap 8.7 mmol/L (3-11); BUN 15 mg/dL (7-18); Bilirubin, Total 0.4 mg/dL (0.2-1.0); CO2 27.3 mmol/L (21.0-32.0); CREATININE 0.8 mg/dL (0.55-1.02); Calcium 9.3 mg/dL (8.5-10.1); Chloride 104 mmol/L (98-107); Estimated GFR 100.96 (mL/min/1.73m2); Glucose 84 mg/dL (74-106); Potassium 3.9 mmol/L (3.5-5.1); Sodium 140 mmol/L (136-145); TSH (W/Ref FT4) 0.82 uIU/mL (0.36-3.74); Total Protein 8.3 g/dL (6.4-8.2)
== END 2022-06-26 15:11 | disposition home or self-care (01) ==
LOC: NCHCN 15:10
PROVIDERS: PCP Nurse Practitioner Family; Visit Provider Nurse Practitioner Family
DX: N92.5 Other specified irregular menstruation (principal); R10.11 Right upper quadrant pain; R82.998 Other abnormal findings in urine
CPT/HCPCS: 80053; 81003; 84443; 85025

== ENCOUNTER 2022-07-09 02:55 | Outpatient (CLI) | payer MEDICAID, SELFPAY ==
--- NOTE | 2022-07-09 | DI.US_ITS ---
Exam(s) US ABDOMEN LIMITED EXAM: US ABDOMEN LIMITED CLINICAL HISTORY: RUQ ABD PAIN R10.11, WITH FEVER X 3 WEEKS TECHNIQUE: Ultrasound abdomen performed using standard protocol. COMPARISON: CT CT ABDOMEN PELVIS W from 11/06/2020 FINDINGS: PANCREAS: Normal where visualized. LIVER: Normal. Hepatopedal flow in the Portal Vein. The liver measures in 14.6 cm length. GALLBLADDER: No evidence of cholelithiasis. No evidence of wall thickening. No pericholecystic fluid identified. There is a 3 mm immobile nodule along the wall of the gallbladder. This likely reflects a small polyp. BILIARY SYSTEM: Common bile duct measures < 7 mm. No intrahepatic biliary ductal dilation. BUCIO'S SIGN: Negative. RIGHT KIDNEY: Kidney is normal in size. No evidence of renal calculi. No evidence of hydronephrosis. No renal mass or cyst identified. ASCITES: None seen. IMPRESSION: 1. 3 mm immobile nodule along the wall of the gallbladder likely reflecting a small polyp. 2. Otherwise unremarkable examination. DATA REPOSITORY:
== END 2022-07-09 03:15 ==
LOC: DI 02:56
PROVIDERS: PCP Nurse Practitioner Family; Visit Provider Nurse Practitioner Family
DX: R10.11 Right upper quadrant pain (principal); R93.5 Abnormal findings on diagnostic imaging of other abdominal regions, including retroperitoneum
CPT/HCPCS: 76705

== ENCOUNTER 2023-02-23 12:32 | Outpatient (REF) | payer MEDICAID, SELFPAY ==
[2023-02-23 16:55] LABS: Abs Immature Grans 0.03 10^3/uL (0.0-0.06); Absolute Basophil Count 0.03 10^3/uL (0.0-0.2); Absolute Eosinophil Count 0.03 10^3/uL (0.0-0.7); Absolute Lymphocyte Count 2.01 10^3/uL (1.2-3.4); Absolute Monocyte Count 0.38 10^3/uL (0.1-0.8); Absolute Neutrophil Count 4.16 10^3/uL (1.2-6.7); Basophils % 0.5; Eosinophils % 0.5; HCT 39.8 % (36.0-46.0); Immature Grans % 0.5; Lymphocytes % 30.3; MCH 29.3 pg (27.0-33.0); MCHC 32.7 % (32.0-36.0); MCV 90 fL (80-95); MPV 9.3 fL (8.0-11.0); Monocytes % 5.7; Neutrophils % 62.5; Platelet Count 379 10^3/uL (130-400); RBC 4.43 10^6/uL (3.93-5.22); RDW 12.4 % (11.7-14.6); RDW-SD 40.8 fL; WBC 6.64 10^3/uL (4.4-10.8)
[2023-02-23 17:00] LABS: ESR 9 mm/hr (0-20)
[2023-02-23 18:05] LABS: ALT 34 U/L (14-59); AST 20 U/L (15-37); Albumin 3.7 g/dL (3.4-5.0); Alkaline Phosphatase 93 U/L (46-116); Anion Gap 10.5 mmol/L (3-11); BUN 12 mg/dL (7-18); Bilirubin, Total 0.3 mg/dL (0.2-1.0); CO2 24.5 mmol/L (21.0-32.0); CREATININE 0.7 mg/dL (0.55-1.02); Calcium 9.2 mg/dL (8.5-10.1); Chloride 106 mmol/L (98-107); Estimated GFR 117.77 (mL/min/1.73m2); FREE T4 0.85 ng/dL (0.76-1.46); Glucose 100 mg/dL (74-106); Potassium 3.8 mmol/L (3.5-5.1); Sodium 141 mmol/L (136-145); TSH 0.94 uIU/mL (0.36-3.74); Total Protein 7.3 g/dL (6.4-8.2)
[2023-02-23 19:36] LABS: Vitamin D 25 Total 25.7 ng/mL (30-100)
[2023-02-23 19:53] LABS: Iron 134 ug/dL (50-170); Total Iron Binding Capacity 323 ug/dL (250-450); Transferrin Sat 41 % (15-50)
== END 2023-02-23 12:33 | disposition home or self-care (01) ==
LOC: NCHCN 12:32
PROVIDERS: PCP Nurse Practitioner Family; Visit Provider Nurse Practitioner Family
DX: R11.2 Nausea with vomiting, unspecified (principal); R53.83 Other fatigue
CPT/HCPCS: 80053; 82306; 85652; 83540; 83550; 84439; 84443; 85025

== ENCOUNTER 2023-03-02 04:35 | Outpatient (CLI) | payer MEDICAID, SELFPAY ==
[2023-03-02] MEDS: Levalbuterol HFA 15 GM INH 4 PUFF IH (10:09)
[2023-03-02] MEDS: Inhaler, Assist Device 1 EACH MC (10:09)
--- NOTE | 2023-03-02 13:17 | W.PFT ---
Date of service: 03/02/23 Time of Service: 08:15 Pulmonary Function Test Result Indications: Dyspnea Interpretation Spirometry: There is mild airflow limitation and a significant bronchodilator response. Flow volume loop is concerning for a fixed airway obstruction. Lung Volumes: There is air trapping Diffusion Capacity: Normal diffusion Airway Pressure: Normal airways resistance Impression Mild airflow obstruction with significant bronchodilator response and air trapping. This can be consistent with asthma or chronic bronchitis (COPD). There is concern for fixed airways obstruction. Recommend neck and chest imaging and consider pulmonary evaluation. Clinical Correlation therefore is recommended.
== END 2023-03-02 04:36 | disposition home or self-care (01) ==
LOC: RT 04:37
PROVIDERS: PCP Nurse Practitioner Family; Visit Provider Nurse Practitioner Family
DX: R06.00 Dyspnea, unspecified (principal)
CPT/HCPCS: 94060; 94726; 94729

== ENCOUNTER 2023-08-11 12:46 | Outpatient (REF) | payer MEDICAID, SELFPAY | END 2023-08-11 12:47 | disposition home or self-care (01) | LOC: LBN 12:46 | PROVIDERS: PCP Nurse Practitioner Family; Visit Provider Advanced Practice Midwife | DX: N89.8 Other specified noninflammatory disorders of vagina (principal) | CPT/HCPCS: 87480; 87510; 87660 ==

== ENCOUNTER 2024-09-29 16:54 | Outpatient (REF) | payer BC, SELFPAY ==
[2024-09-29 16:10] LABS: Calculated LDL 135 mg/dL (<100); Cholesterol 211 mg/dL (<200); HDL Cholesterol 63 mg/dL (>or=50); Triglyceride 65 mg/dL (<150)
== END 2024-09-29 16:55 | disposition home or self-care (01) ==
LOC: NCHCN 16:54
PROVIDERS: Visit Provider Physician Assistant
DX: Z13.220 Encounter for screening for lipoid disorders (principal); Z13.1 Encounter for screening for diabetes mellitus
CPT/HCPCS: 80061; 83036

== ENCOUNTER 2025-02-16 04:27 | Outpatient (CLI) | payer BC, SELFPAY ==
[2025-02-16 10:19] LABS: Abs Immature Grans 0.03 10^3/uL (0.0-0.06); HCT 38.3 % (36.0-46.0); HGB 13.0 g/dL (11.2-15.7); Immature Grans % 0.3 %; MCH 29.9 pg (27.0-33.0); MCHC 33.9 % (32.0-36.0); MCV 88 fL (80-95); MPV 9.0 fL (8.0-11.0); Platelet Count 369 10^3/uL (130-400); RBC 4.35 10^6/uL (3.93-5.22); RDW 12.7 % (11.7-14.6); RDW-SD 40.5 fL; WBC 9.95 10^3/uL (4.4-10.8)
[2025-02-16 11:08] LABS: Hemoglobin A1C 4.6 % (<5.7)
[2025-02-16 18:00] LABS: HIV-1/2 Ag & Ab Screen Negative (Negative)
[2025-02-16 18:48] LABS: Hepatitis C Ab w Rflx HCV PCR Negative (Negative)
[2025-02-17 11:29] LABS: Rubella IgG Ab (UVM) Positive (See Note)
[2025-02-20 14:59] LABS: Syphilis IgG w/Reflex Nonreactive (Nonreactive)
== END 2025-02-16 04:28 | disposition home or self-care (01) ==
LOC: LBO 04:27
PROVIDERS: Visit Provider Advanced Practice Midwife
DX: Z34.91 Encounter for supervision of normal pregnancy, unspecified, first trimester (principal)
CPT/HCPCS: 36415; 86787; 86803; 86850; 86900; 86901; 87340; 87389; 83036; 85025; 86762; 86780

== ENCOUNTER 2025-02-16 09:38 | Outpatient (REF) | payer BC, SELFPAY ==
[2025-02-16 11:03] LABS: Cannabinoids THC Negative (Negative); METHADONE URINE SCREEN Negative (Negative)
[2025-02-17 11:15] LABS: Chlamydia Result Negative (Negative); GC Result Negative (Negative)
[2025-02-17 11:41] LABS: Fentanyl Scr w/Rfx Confirm Negative ng/mL (<1)
== END 2025-02-16 09:39 | disposition home or self-care (01) ==
LOC: LBN 09:38
PROVIDERS: PCP Physician Assistant; Visit Provider Advanced Practice Midwife
DX: Z34.91 Encounter for supervision of normal pregnancy, unspecified, first trimester (principal)
CPT/HCPCS: 80307; 80348; 87491; 87591; 87086